=== PATIENT | male | born 1955 | race Caucasian/White ===

== ENCOUNTER 2025-05-17 00:47 | Emergency (ER) | payer MEDICARE, BC, SELFPAY ==
--- NOTE | 2025-05-17 00:49 | ED.GENADULT ---
HPI - General Adult General Time Seen by Provider: 00:49 Date Seen: 05/17/25 Chief complaint: Abdominal Pain Stated complaint: chest pain Time Seen by Provider: 05/17/25 00:49 Source: patient, RN notes reviewed and old records reviewed Mode of arrival: ambulatory Limitations: no limitations History of Present Illness HPI narrative: 70-year-old male who presents to the emergency department today with abdominal pain. Patient had a colonoscopy today, states tonight after eating dinner he had upper abdominal pain and cramping, nausea with no vomiting. Does have some bloating. Says he has not passed gas since his procedure. No fevers or chills, hard to take a deep breath in. Denies chest pain, neck pain, difficulty swallowing. Related Data Allergies Allergy/AdvReac Type Severity Reaction Status Date / Time No Known Drug Allergies Allergy Verified 05/17/25 00:58 PFSH PFS Social History Smoking Status: Never smoker Do you use any of these nicotine containing products: None Second hand tobacco smoke exposure: No How often do you have a drink containing alcohol: monthly or less How often do you have six or more drinks on one occasion: Never AUDIT-C Alcohol total score: 1 Non-prescribed substance use: denies use service: No Exam Narrative: Exam Narrative: General: Well-developed and well-nourished, no acute distress Head: Atraumatic and normocephalic Eyes: Pupils are equal reactive, extraocular motions intact, conjunctiva clear ENT: External nose and ears are normal, posterior pharynx without erythema or exudate Neck: No midline cervical tenderness, full spontaneous range of motion the neck, trachea midline, no adenopathy Heart: Regular rate and rhythm no murmurs or thrills Lungs: Clear to auscultation bilaterally without wheezes or crackles Abdomen: Abdominal distension with diffuse upper abdominal tenderness Musculoskeletal: No tenderness, deformity, or edema Neurologic: Awake, alert, and oriented x3, no gross focal neurologic deficits, cranial nerves intact as tested Psych: Mood and affect are appropriate Skin: No rashes Const: Vital Signs, click to edit/add: Vital Signs - 24 hr 05/17/25 00:53 05/17/25 01:30 05/17/25 01:45 Temperature 98 F Pulse Rate Pulse Rate [Pulse Oximeter] 58 L 58 L 60 Respiratory Rate 16 22 20 Blood Pressure Blood Pressure [Ri ght Upper Arm] 146/88 H 152/102 H 136/86 Pulse Oximetry 98 95 94 Oxygen Delivery Me thod Room Air Room Air Room Air 05/17/25 02:00 Temperature Pulse Rate 82 Pulse Rate [Pulse Oximeter] Respiratory Rate 18 Blood Pressure 142/85 H Blood Pressure [Ri ght Upper Arm] Pulse Oximetry 96 Oxygen Delivery Me thod Room Air Course Course ED Course: Reviewed most recent procedure visit from yesterday when patient had a colonoscopy with polypectomy- polyp removed from the rectum. Care complicated by history of hyperlipidemia, also history of urinary retention and obesity Patient presents today with upper abdominal pain, bloating, nausea after eating. Colonoscopy yesterday, has not passed gas since his procedure. On exam, vital is stable, appears comfortable, abdominal bloating with diffuse upper abdominal tenderness. Consider pancreatitis, colitis, ileus. Also consider acute cholecystitis, perforation. Labs and CT scan are ordered. Patient declines pain medication. Patient did start vomiting after initial evaluation, Zofran ordered. Reevaluation(s) Time of Reevaluation #1: 01:49 Reevaluation #1: Labs independently interpreted by me with normal CBC, normal basic panel other than elevated glucose, elevated bilirubin, AST, ALT. CT scan is pending, concern for biliary obstruction. EKG independently interpreted by me performed at 11:55 p.m. demonstrates normal sinus rhythm rate 60, SC 180, QTC 452, no acute ischemic changes. No prior for comparison. Time of Reevaluation #2: 02:08 Reevaluation #2: CT abdomen and pelvis and panel interpreted by me without evidence of free air although somewhat limited by motion artifact, no gallstones, no gallbladder wall thickening. Time of Reevaluation #3: 02:34 Reevaluation #3: IMPRESSION: 1. No acute abdominal or pelvic abnormality. 2. Incidental findings as above. Patient rechecked, symptoms are resolved. We discussed findings and CT scan which did not demonstrate any acute abnormality. Also discussed elevated total bilirubin, AST, ALT and that this may represent transient biliary obstruction or biliary colic. We discussed disposition, either observation in the emergency department until the morning and recheck LFTs and possible MRCP at that point if LFTs are rising versus discharge home with close follow-up. Patient feels better and would like to go home. Anticipate discharge. Vital Signs Vital signs: Initial Vital Signs Temperature 98 F 05/17/25 00:53 Temperature Source Temporal Artery Scan 05/17/25 00:53 Pulse Rate 58 L 05/17/25 00:53 Respiratory Rate 16 05/17/25 00:53 Blood Pressure 146/88 H 05/17/25 00:53 Blood Pressure Mean 107 H 05/17/25 00:53 Blood Pressure Position Semi-Fowlers 05/17/25 00:53 Pulse Oximetry 98 05/17/25 00:53 Oxygen Delivery Method Room Air 05/17/25 00:53 Vital Signs Temperature 98 F 05/17/25 00:53 Pulse Rate 58 L 05/17/25 00:53 Respiratory Rate 16 05/17/25 00:53 Blood Pressure 146/88 H 05/17/25 00:53 Pulse Oximetry 98 05/17/25 00:53 Oxygen Delivery Method Room Air 05/17/25 00:53 Temperature 98 F 05/17/25 00:53 Pulse Rate 82 05/17/25 02:00 Respiratory Rate 18 05/17/25 02:00 Blood Pressure 142/85 H 05/17/25 02:00 Pulse Oximetry 96 05/17/25 02:00 Oxygen Delivery Method Room Air 05/17/25 02:00 Medications Administered Medications: Discontinued Medications Generic Name Dose Route Start Last Admin Trade Name Freq PRN Reason Stop Dose Admin Ondansetron HCl 4 mg 05/17/25 01:10 05/17/25 01:25 Ondansetron 2 Mg/Ml Inj IVP 05/17/25 01:11 4 mg ONCE ONE Administration Medical Decision Making Lab Data Labs: Lab Results 05/17/25 05/17/25 Range/Units 01:15 02:33 WBC 9.45 (4.50-11.00) K/uL RBC 4.18 L (4.30-5.90) m/uL Hgb 13.8 (13.5-17.5) gm/dL Hct 40.9 (37.0-53.0) % MCV 98 (80-100) fL MCH 33 (26-34) pg MCHC 34 (32-36) gm/dL RDW Coeff of Jonathon 13.3 (11.5-15.5) % Plt Count 262 (140-440) K/uL Neut % (Auto) 77.6 H (42.0-72.0) % Lymph % (Auto) 12.2 L (20-44) % [place] % (Auto) 8.9 (0.0-11.0) % Eos % (Auto) 0.6 (0.0-7.0) % Baso % (Auto) 0.3 (0.0-3.0) % Neut # (Auto) 7.30 H (1.7-7.0) K/uL Lymph # (Auto) 1.20 (0.90-2.90) K/uL [place] # (Auto) 0.80 (0.00-0.90) K/UL Eos # (Auto) 0.06 (0.00-0.50) K/uL Baso # (Auto) 0.03 (0.00-0.30) K/uL Abs Immat Gran (auto) 0.04 (0.00-0.30) K/uL Imm/Tot Granulo (auto) 0.4 % Sodium 139 (135-149) mmol/L Potassium 3.8 (3.6-5.1) mmol/L Chloride 105 (96-114) mmol/L Carbon Dioxide 25 (20-32) mmol/L Anion Gap 9 (7-15) mEq/L BUN 14 (7-30) mg/dL Creatinine 0.8 (0.5-1.5) mg/dL Estimated GFR 95 ml/min Glucose 173 H (60-115) mg/dL Lactate 1.5 (0.5-1.9) mmol/L Calcium 9.5 (8.4-10.6) mg/dL Magnesium 1.7 (1.5-2.6) mg/dL Total Bilirubin 1.8 H (0.1-1.5) mg/dL Direct Bilirubin 0.8 H (0.0-0.5) mg/dL AST 143 H (12-35) U/L ALT 89 H (4-50) U/L Alkaline Phosphatase 145 (40-150) U/L Troponin I < 0.01 (0.01-0.04) ng/mL Total Protein 7.8 (6.0-8.3) g/dL Albumin 4.3 (3.3-5.0) g/dL Lipase 84 (23-300) U/L Lab Acknowledgement Test Added Discharge Plan Discharge Clinical Impression: Acute upper abdominal pain, LFT elevation, Transaminitis, Hyperbilirubinemia Patient Disposition: Home, Self-Care Condition: Stable Instructions: Acute Abdominal Pain (DC) Additional Instructions: Your liver tests including bilirubin are slightly elevated. This can indicate an obstruction of the tube that leads from the gallbladder into the intestine. There is no evidence of gallstones or gallbladder infection on your CT scan. However, you should follow-up closely in clinic for repeat of liver tests and possible further evaluation of the gallbladder and liver, including ultrasound or MRI. Liquid diet for 24 hours. If your symptoms return, or if you developed fever or other concerns, return to the emergency department. Activity Level: No Restrictions Discharge Diet: Full Liquid Stand Alone Forms: [employer] Info Instructions
[2025-05-17 00:53] VITALS: BP 146/88; PULSE 58; RESP 16; TEMP 36.6; O2SAT 98
--- NOTE | 2025-05-17 01:04 | CRLHL7_ITS ---
For Patients: As a result of the Century Cures Act, medical imaging exams and procedure reports are released immediately into your electronic medical record. You may view this report before your referring provider. If you have questions, please contact your health care provider. INDICATION: Upper abdominal pain. TECHNIQUE: CT abdomen and pelvis acquired with 98 cc Isovue 370 IV contrast. COMPARISON: None. FINDINGS: Lower chest: Unremarkable. Liver: Unremarkable. Normal in size and attenuation. No suspicious masses. Gallbladder and bile ducts: Unremarkable. No stones or inflammation. No biliary ductal dilatation. Spleen: Unremarkable. Normal in size. No masses. Adrenal glands: Unremarkable. No nodules. Pancreas: Unremarkable. No mass or inflammation. Kidneys: Left renal cysts. Subcentimeter hypodense foci are too small to accurately characterize. No hydronephrosis. GI tract: Duodenal diverticulum. Colonic diverticulosis without evidence of diverticulitis. No evidence of obstruction. Normal appendix. Lymph nodes: No lymphadenopathy. Vasculature: Scattered atherosclerotic calcifications. Abdominal aorta is normal in caliber. Omentum/Peritoneum/Abdominal Wall: Small fat containing umbilical and right inguinal hernias. No free air or significant free fluid. Pelvis: Urinary bladder diverticulum. Bones: Degenerative changes. Chronic bilateral L5 pars defect with grade 1 anterolisthesis L5 on S1. IMPRESSION: 1. No acute abdominal or pelvic abnormality. 2. Incidental findings as above. Please note that all CT scans at this facility use dose modulation, iterative reconstruction, and/or weight-based dosing when appropriate to reduce radiation dose to as low as reasonably achievable. Dictated by Alan Guy MD @ 05/17/2025 2:24:06 AM (Electronically Signed)
[2025-05-17] MEDS: ONDANSETRON 2 MG/ML inj 4 MG IVP (01:25)
[2025-05-17 01:29] LABS: Lactate* 1.5 mmol/L (0.5-1.9)
[2025-05-17 01:30] VITALS: BP 152/102; PULSE 58; RESP 22; O2SAT 95
[2025-05-17 01:33] LABS: Hematocrit* 40.9 % (37.0-53.0); Hemoglobin* 13.8 gm/dL (13.5-17.5); Immature Granulocytes Abs Auto 0.04 K/uL (0.00-0.30); Immature Granulocytes Pct Auto 0.4 %; Mean Corpuscular HGB Conc 34 gm/dL (32-36); Mean Corpuscular Hemoglobin 33 pg (26-34); Mean Corpuscular Volume 98 fL (80-100); RDW Coefficient of Variation % 13.3 % (11.5-15.5); Red Blood Count* 4.18 m/uL (4.30-5.90); White Blood Count* 9.45 K/uL (4.50-11.00)
[2025-05-17 01:35] LABS: Lymphocytes Absolute Auto 1.20 K/uL (0.90-2.90); Slide Review Reflex No
[2025-05-17 01:43] LABS: Albumin* 4.3 g/dL (3.3-5.0); Chloride* 105 mmol/L (96-114)
[2025-05-17 01:44] LABS: Potassium* 3.8 mmol/L (3.6-5.1); Sodium* 139 mmol/L (135-149)
[2025-05-17 01:45] VITALS: BP 136/86; PULSE 60; RESP 20; O2SAT 94
[2025-05-17 01:46] LABS: Alanine Aminotransferase* 89 U/L (4-50); Anion Gap 9 mEq/L (7-15); Aspartate Amino Transferase* 143 U/L (12-35); Blood Urea Nitrogen* 14 mg/dL (7-30); Carbon Dioxide* 25 mmol/L (20-32); Creatinine* 0.8 mg/dL (0.5-1.5); Estimated Glomerular Filt Rate 95 ml/min
[2025-05-17 01:47] LABS: Alkaline Phosphatase* 145 U/L (40-150); Bilirubin Direct* 0.8 mg/dL (0.0-0.5); Bilirubin Total* 1.8 mg/dL (0.1-1.5); Calcium* 9.5 mg/dL (8.4-10.6); Glucose* 173 mg/dL (60-115); Total Protein* 7.8 g/dL (6.0-8.3)
[2025-05-17 02:00] VITALS: BP 142/85; PULSE 82; RESP 18; O2SAT 96
--- OUTSIDE RECORDS SUMMARY | 2025-05-17 02:01 | XMS_ITS | Clinical Summary ---
Author Organization [facility] Address [address] [place] [id number] Care Team Providers Care Machine Repair Person Name Role Phone Iam Forbes MD Primary Care P rovider Allergies No known active allergies Medications CPAP As directed 1 Device one time. 4 Active multivitamin therapeutic (THERAGRAN; ONCOVITE) tablet Take 1 Tablet by mouth once daily. Active timoloL maleate (TIMOPTIC) 0.5 % ophthalmic solution two times daily. 4 Active tolterodine 4 mg Extended-Release capsuleIndications :Overactive bladder Take 1 Capsule (4 mg) by mouth once daily. 90 Capsule 1 5 Active atorvastatin 40 mg tabletIndications: Mixed hyperlipidemia Take 1 Tablet (40 mg) by mouth at bedtime. 90 Tablet 5 Active CPAPIndications:Ob structive sleep apnea treated with continuous positive airway pressure (CPAP) RESMED CPAP (E0601) machine for home use at pressure: 5-15cmw, Choice of mask (A7030 or A7034) w/full face cushion (A7031) x1/mo, nasal cushion (A7032) x2/mo, or nasal pillows (A7033) x 2/mo; Length of Need: 99 months; Frequency of use: Daily 1 Each 11 5 Active Active Problems Problem Noted Date Diagnosed Date Class 1 obesity due to exces s calories without serious comorbidity with body mass index (BMI) of 33.0 to 33.9 in adult 05/09/2024 Obstructive sleep apnea ed mo with continuous positive airway pressure (CPAP) 06/05/2022 Glaucoma of both eyes 04/16/2021 Overview (06/08/2024): Managed by ophthalmology Actinic keratoses 11/18/2019 Overview (06/08/2024): treated with liquid nitrogen. May need derm referal in the future Family history of prostate cancer in father 11/2018 History of knee replacement, total, bilateral Overactive bladder 02/01/2019 History of colonic polyps 12/07/2017 Overview (06/08/2024): Hyperplastic in 2008 HLD (hyperlipidemia) 12/12/2013 Urinary retention 12/12/2013 Resolved Problems Problem Noted Date Diagnosed Date Resolved Date Pure hypercholesterolemia 02/27/2004 Encounters Date Type Department Care Team Description 05/16/2025 8:36 AM CDT Anesthesia Event [facility] [address] [place] [address] Ruben Adrian CRNA 05/16/2025 8:24 AM CDT - 05/16/2025 9:14 AM CDT Surgery [facility] [address] [place] [address] Gisell Garcia, COLONOSCOPY WITH POLYPECTOMY 05/16/2025 6:59 AM CDT - 05/16/2025 10:12 AM CDT Hospital Encounter [facility] [address] [place] [address] Gisell Garcia, Discharge Disposition: Home Self Care 05/16/2025 Travel from Last 3 Months Immunizations Immunization Administration Dates Next Due COVID-19 VACCINE COMIRNATY (PFIZER-BIONTECH 30MCG/0.3ML) 12YO+ PFS 06/19/2023 COVID-19 vaccine (Pfizer-Bio NTech 30mcg/0.3mL) PF, MDV 06/19/2023 INFLUENZA, IIV3 PF (AGE >= 6 MO) 06/24/2016 Influenza Virus, Unspecified 05/21/2021, 08/03/2013,06/01/2012,06/10 Influenza, High-dose Quadriv alent Inactivated 06/19/2023,06/10/2022 Influenza, IIV3 (Age >=3 years) 05/25/2012,06/11 Influenza, IIV4 06/26/2020, 8,05/27/2017,05/30,06/27/2014 Influenza, IIV4 (=>6mos) MDV 08/03/2013 Influenza, Inactivated AIIV4 (Age 65+ Years) Preserv Free 06/19/2023,05/21/2021 Influenza, Inactivated IIV3 (Age 65+ Years) Preserv Free 06/13/2024,06/01/2019 Pneumococcal Conj 20-valent (Prevnar 20) 04/21/2022 Pneumococcal Poly,23-Valent (Pneumovax) 04/03/2020 RSV, Bivalent Vaccine Recons tituted (Abrysvo 120MCG/0.5mL) 06/19/2023 RSV, Recombinant ADJ Reconst ituted (Arexvy 120MCG/0.5mL) 06/19/2023 Td (Age >=7 Years) 04/03/2020, 6,10/13/1994,08/31,04/06/1985 Td Adult, Adsorbed, Pf, Lf Unspecified 0 Td, Preservative Free (age >= 7 Years) 5,08/31/1994,04/06/1985 Tdap 11/17/2024,04/09/2010 Zoster (Shingrix-RZV, recombinant) 01/30/2021, Zoster (Zostavax-ZVL, live) 09/24/2015, 2 Social History Tobacco Use Types Packs/Day Years Used Date Smoking Tobacco: Never Smokeless Tobacco: Never Tobacco Cessation:Counseling Given: Not Answered Alcohol Use Standard Drinks/Week Comments Yes 0 (1 standard drink = 0.6 oz pur e alcohol) 3 beers a week PHQ-2 Answer Date Recorded PHQ-2 TOTAL SCORE 0 06/09/2024 Social Connections Answer Date Recorded Do you often feel lonely or isolated from those around you? 0 12/27/2024 Financial Resource Strain Answer Date R ecorded Difficulty of Paying Living Expenses 3 12/27/2024 Difficulty of Paying Living Expenses Not on file 12/27/2024 Food Insecurity Answer Date Recorded Do you worry your food will run out before you are able to buy more? 1 12/27/2024 Transportation Needs Answer Date Record ed Does lack of transportation keep you from medica l appointments? 1 12/27/2024 Does lack of transportation keep you from work, meetings or getting things that you need? 1 12/27/2024 Housing Stability Answer Date Recorded What is your housing situation today? 1 12/27/2024 Utilities Answer Date Recorded Do you have trouble paying f or utilities (for example, heat, electricity, water, phone)? 1 12/27/2024 Sex and Gender Information Value Date Recorded Sex Assigned at Not on file Legal Sex Male 9:37 AM CDT Gender Identity Not on file Sexual Orientation Not on file Obstetrics History Last Filed Vital Signs Vital Sign Reading Time Taken Comments Blood Pressure 117/71 05/16/2025 9:45 AM CDT Pulse 59 05/16/2025 10:00 AM CDT Temperature 36.7 C (98 F) 05/16/2025 7:19 AM CDT Respiratory Rate 16 05/16/2025 9:15 AM CDT Oxygen Saturation 96% 05/16/2025 10: 00 AM CDT Inhaled Oxygen Concentration - - Weight 100.6 kg (221 lb 12.8 oz) 05/16/2025 7:19 AM CDT Height 172.7 cm (5' 8) 05/16/2025 7:19 AM CDT Body Mass Index 33.72 05/16/2025 7:19 AM CDT Plan of Treatment Upcoming Encounters Date Type Department Care Team (Late st Contact Info) Description 05/31/2025 10:00 AM CDT Office Visit [facility] [address] [place] [address] Iam Forbes MD [address] [place] [address] Health Maintenance Due Date Last Done Comments Hepatitis C screening for age 18-79 1972 COVID-19 vaccine series (2023- season) 2025 06/13/2024, 06/19/2023, 06/19/2023, Additional history exists Influenza Vaccine (#1) 2025 , 06/19/2023, 05/21/2021, Additional history exists Medicare Wellness for age 65+ 05/10/2025 05/09/2024 (Verified in Care Everywhere or Patient Record) Depression screening for age 12+ 06/09/2025 06/09/2024 BMI (ht and wt on same day) for age 18+ 02/02/2026 02/02/2025, 06/09/2024 Lipids for age 45-75 05/09/2029 05/09/2024 (Verified in Care Everywhere or Patient Record) Tetanus booster 11/17/2034 11/17/2024, 08/0 11/2019, 04/03/2020, Additional history exists Colonoscopy through age 75 05/16/203505/16, 04/30/2009 (Verified in Care Everywhere or Patient Record) Zoster (shingles) series for age 50+ Completed 01/30/2021, 09/04/2020, 09/24/2015, Additional history exists Pneumococcal series for age 50+ Completed 04/21/2022, 04/03/2020 RSV vaccine for adults or Completed 06/19/2023, 06/19/2023 Hepatitis B series for 19+ Aged Out N o longer eligible based on patient's age to complete this topic Procedures Procedure Name Priority Date/Time Associated Diagnosis Comments COLONOSCOPY 05/16/2025 8:27 AM CDT from Last 3 Months Results * COLONOSCOPY (05/16/2025 8:27 AM CDT) 05/16/2025 8:27 AM CDT Narrative Transcriptions Gisell Garcia DO - 05/16/2025 9:30 AM CDT Patient Name: Yves Echeverria Procedure Date: 05/16/2025 Gender: Male Date of : 1955 Admit Type: Ambulatory Procedure: Colonoscopy Proceduralist: DO Fabricio Moss MD: Iam Forbes Indications/Pre-Op Diagnosis: High risk colon cancer surveillance:Personal history of colonic polyps Medications: Propofol per Anesthesia, MonitoredAnesthesia Care Procedure Description: The patient had risks, benefits and alternatives explained to andgave informed consent. The patient had a stable cardiopulmonary status and judged an adequate candidate for conscious sedation. The endoscope [id number] was passed through the anus andadvanced to the terminal ileum, with identification of the appendiceal orifice and IC valve. The colonoscopy was somewhat difficult due to aredundant colon. Successful completion of the procedure was aided by applying abdominal pressure. The patient tolerated the procedure well. The quality of the bowel preparation was evaluated using the BBPS ([place] Bowel Preparation Scale) with scores of: Right Colon = 2 (minoramount of residual staining, small fragments of stool and/or opaque liquid,but mucosa seen well), Transverse Colon = 2 (minor amount of residual staining, small fragments of stool and/or opaque liquid, but mucosaseen well) and Left Colon = 2 (minor amount of residual staining, small fragments of stool and/or opaque liquid, but mucosa seen well). The total BBPS score equals 6. The quality of the bowel preparation was good. The terminal ileum, ileocecal valve, appendiceal orifice, and rectum were photographed. Complications: No immediate complications. Estimated Blood Loss & Specimen: Estimated blood loss was minimal. Specimen collected - Yes and sent to Laboratory Findings: The perianal and digital rectal examinations were normal. Pertinent negatives include normal sphincter tone, no palpable rectal lesionsand normal stool Hemoccult. A 3 mm polyp was found in the rectum. The polyp wassemi-pedunculated. The polyp was removed with a hot snare. Resection and retrieval were complete. Verification of patient identification for the specimen was done. Estimated blood loss was minimal. The terminal ileum contained a single 3 mm diverticulum. Many large-mouthed, medium-mouthed and small-mouthed diverticula were found in the sigmoid colon. Non-bleeding internal hemorrhoids were found during retroflexion and during endoscopy. The hemorrhoids were medium-sized and Grade III (internal hemorrhoids that prolapse but require manual reduction). The colon (entire examined portion) was moderately redundant.Advancing the scope required using manual pressure. The exam was otherwise without abnormality on direct and retroflexion views. Impressions/Post-Op Diagnosis: - One 3 mm polyp in the rectum, removed with a hot snare. Resectedand retrieved. - Ileal diverticulum. - Diverticulosis in the sigmoid colon. - Non-bleeding internal hemorrhoids. - Redundant colon. - The examination was otherwise normal on direct and retroflexionviews. Recommendation: - Patient has a contact number available for emergencies. The signsand symptoms of potential delayed complications were discussed with the patient. Return to normal activities tomorrow. Written discharge instructions were provided to the patient. - Discharge patient to home (ambulatory). - Resume previous diet. - Continue present medications. - Await pathology results. - Repeat colonoscopy in 5-10 years for surveillance based onpathology results. Gisell Garcia DO 05/16/2025 9:30:05 AM This report has been signed electronically. Note Initiated On: 05/16/2025 8:27 AM Gisell Garcia DO PROCEDURE ORD Final Res ult from Last 3 Months Insurance [facility] ADVANT[facility] MEDICARE [place] ONLY MEDICARE PART B HB ONLY MEDICARE PART A HB ONLY Advance Directives Documents on File Type Date Recorded Patient Well Surveying Engineer Expl anation Healthcare Directive 02/17/2022 022 * Full Code (Latest Code Status on File) Date Activated Date Inactivated Comments 05/16/2025 7:02 AM 05/16/2025 12:21 PM Question Answer Comments Code Status Discussion: Discussed Care Teams Machine Repair Person Relationship Specialty Start Date End Date Iam Forbes MD [address] [place] [address] PCP - General Family Practice 06/09/24
[2025-05-17 03:24] VITALS: BP 150/101; PULSE 64; RESP 18
== END 2025-05-17 03:25 | disposition home or self-care (01) ==
PROVIDERS: Emergency Provider Family Medicine; PCP Student in an Organized Health Care Education/Training Program
DX: R10.10 Upper abdominal pain, unspecified (principal); R94.5 Abnormal results of liver function studies; E80.6 Other disorders of bilirubin metabolism; R74.01 Elevation of levels of liver transaminase levels
CPT/HCPCS: 36415; 74177; 80048; 80076; 83605; 83690; 83735; 84484; 85025; 96374; 99284; J2405; Q9967

== ENCOUNTER 2025-05-17 08:28 | Inpatient (IN) | payer MEDICARE, BC, SELFPAY ==
[2025-05-17] VITALS (20 sets, daily range): BP systolic 118–151; BP diastolic 74–103; PULSE 63–110; RESP 11–32; TEMP 36.8–37.6; O2SAT 89–96; BMI 33.4; BMI 33.6; BMI 33.7
--- NOTE | 2025-05-17 09:11 | ED_ITS ---
HPI - General Adult General Time Seen by Provider: 09:11 Date Seen: 06/07/25 Chief complaint: Abdominal Pain Stated complaint: Bloating, chest pain, lightheaded Time Seen by Provider: 05/17/25 09:10 Source: patient and RN notes reviewed Mode of arrival: ambulatory Limitations: no limitations History of Present Illness HPI narrative: This 70-year-old male is returning this morning with ongoing right upper quadrant/ epigastric / lower chest pain. He had been evaluated early this morning just after midnight with abdominal pain. He had had a colonoscopy on 05/16, yesterday. After eating dinner last night, he had upper abdominal pain and cramping, nausea with no vomiting. He felt bloated as well. He had noted no fevers chills. He was found to have elevated liver enzymes, elevated bilirubin but negative CT imaging. Patient opted to go home Rather than being monitored here. He is returning as his pain is worse. He did just have 2 episodes of vomiting after arrival here. The vomiting has resolved some of the pain. He is passing flatus, unsure if he has had a bowel movement since is colonoscopy. He feels lightheaded with his symptoms today as well. No prior abdominal surgery. Related Data Home Medications ?Medication ?Instructions ?Recorded ?Confirmed atorvastatin 40 mg tablet 40 mg PO DAILY 05/17/2505/01 lutein 10 mg tablet 10 mg PO DAILY 05/17/2505/01 wjvzuwtz-iuxbsvxq-cjqhl acid 400 1 tab PO DAILY 05/17/25 mcg-vit K 20 mcg-lycop 300 mcg tablet (One-A-Day Men's Multivitamin) omega3 550 vk-zbs-gmi-D3 250 1.5 cap PO DAILY 05/17/25 05/17/25 unit-lutein 2.5 mg-zeaxant 0.5 mg capsule (Eye [place] Advantage) timolol maleate 0.5 % eye drops 1 drp ophthalmic (eye) QAM 05/17/25 05/17/25 tolterodine 4 mg capsule,extended 4 mg PO DAILY 05/17/25 release 24 hr zeaxanthin 10 mg capsule 2 mg PO DAILY 05/17/2505/17 (Eyepromise Zeaxanthin) Previous Rx's ?Medication ?Instructions ?Recorded hydrocodone 5 mg-acetaminophen 325 1 tab PO Q6H PRN amanda in #14 tabs 05/18/25 mg tablet Allergies Allergy/AdvReac Type Severity Reaction Status Date / Time No Known Drug Allergies Allergy Verified 05/17/25 08:48 Review of Systems Status of ROS: Reports: 6 or more systems reviewed and unremarkable except as noted in History and below PFSH PFS Medical History Overactive bladder ?N32.81 - Overactive bladder (ICD-10) NANDA on CPAP ?G47.33 - Obstructive sleep apnea (adult) (pediatric) (ICD-10) Hyperlipidemia ?E78.5 - Hyperlipidemia, unspecified (ICD-10) Obesity ?E66.9 - Obesity, unspecified (ICD-10) Surgical History H/O inguinal hernia repair ?Z98.890 - Other specified postprocedural states (ICD-10) ?Z87.19 - Personal history of other diseases of the digestive system (ICD-10) History of total bilateral knee replacement ?Z96.653 - Presence of artificial knee joint, bilateral (ICD-10) Social History What is your current living situation?: I presently have a place to live Problems where you live: no known problems In the past 12 months, utilities in danger of being shut off: no In past 12 months, lack of transportation kept you from medical appts, meetings, work, or getting things needed for daily living: no In the past 12 mos, have been you worried that your food would run out before you had money to buy more?: never true In the past 12 mos, the food you bought just didn't last and you didn't have money to buy more?: never true Smoking Status: Never smoker Do you use any of these nicotine containing products: None Second hand tobacco smoke exposure: No How often do you have a drink containing alcohol: monthly or less How often do you have six or more drinks on one occasion: Never AUDIT-C Alcohol total score: 1 Non-prescribed substance use: denies use How often does anyone, including family, friends and others, physically hurt you : never How often does anyone, including family, friends and others, insult or talk down to you: never How often does anyone, including family, friends and others, threaten you with harm: never How often does anyone, including family, friends and others, scream or curse at you: never service: No Exam Const: Vital Signs, click to edit/add: Vital Signs - 24 hr 05/17/25 14:44 05/17/25 14:56 05/17/25 15:00 Pulse Rate [Left P ulse Oximeter] 79 Respiratory Rate 22 Blood Pressure [Ri ght Arm] 147/96 H Pulse Oximetry 93 93 93 Oxygen Delivery Me thod Room Air Room Air 05/17/25 15:00 Pulse Rate [Left P ulse Oximeter] 79 Respiratory Rate 20 Blood Pressure [Ri ght Arm] Pulse Oximetry Oxygen Delivery Me thod This 70-year-old male is lying flat on the ER bed in exam room 1. He is alert and interactive but looks like he does not feel well. Do feel that he may have some jaundice but it could be lighting in the room. His speech is normal, able speak in complete sentences. Lungs are clear, no wheezing or crackles, no tachypnea, no accessory muscle use. CV regular rate and rhythm, no murmur. Abdomen seems like it is mildly distended, faint occasional bowel sound, epigastric to right upper quadrant abdominal discomfort but no rebound or guarding noted, no organomegaly noted. Documenting provider has reviewed patient's vital signs: yes Course Course ED Course: This patient will get ultrasound of his gallbladder. We will recheck full complement of labs. Will also look at a portable chest x-ray, EKG and troponin on him to make sure stability underlying cardiac system. Do think his symptoms likely represent GI pathology with biliary issues. He may need MRCP done based on findings and clinical picture. Will give him IV fluids and Zofran. He does not think he needs anything for pain at this time. Will monitor this patient on pulse oximetry and cardiac monitoring for the time being. Reevaluation(s) Time of Reevaluation #1: 13:56 Reevaluation #1: I have updated the patient that his MRCP and ultrasound, labs are consistent with acute cholecystitis. He understands the plan, he will meet with the surgeon I think probably tomorrow. He will be managed by the hospitalist. Consultations Consultation #1: Did speak with general surgeon Dr. Wilkinson, she agrees that we should proceed with MRCP given the elevated bilirubin. Unclear with the exact etiology is at this time for his elevated bilirubin and liver enzymes. 1:48 p.m.: Did update Dr. Wilkinson. She agrees this is looking like cholecystitis, will initiate Zosyn, she would like him NPO and the hospitalist to manage. Time: 11:14 Consultation #2: Did talk to Dr. Darling the hospitalist. She will accept patient. Time: 14:00 Vital Signs Vital signs: Initial Vital Signs Temperature 98.2 F 05/17/25 08:50 Temperature Source Temporal Artery Scan 05/17/25 08:50 Pulse Rate 75 05/17/25 08:50 Respiratory Rate 18 05/17/25 08:50 Blood Pressure 147/93 H 05/17/25 08:50 Blood Pressure Mean 111 H 05/17/25 08:50 Blood Pressure Position Sitting 05/17/25 08:50 Pulse Oximetry 92 05/17/25 08:50 Oxygen Delivery Method Room Air 05/17/25 08:50 Vital Signs Temperature 98.2 F 05/17/25 08:50 Pulse Rate 75 05/17/25 08:50 Respiratory Rate 18 05/17/25 08:50 Blood Pressure 147/93 H 05/17/25 08:50 Pulse Oximetry 92 05/17/25 08:50 Oxygen Delivery Method Room Air 05/17/25 08:50 Temperature 98.1 F 05/18/25 13:50 Pulse Rate 77 05/18/25 13:50 Respiratory Rate 20 05/18/25 13:50 Blood Pressure 119/85 05/18/25 13:50 Pulse Oximetry 92 05/18/25 13:50 Oxygen Delivery Method Room Air 05/18/25 13:50 Oxygen Flow Rate 6 05/18/25 11:20 Medications Administered Medications: Generic Name Dose Route Start Last Admin Trade Name Freq PRN Reason Stop Dose Admin Acetaminophen 650 mg 05/17/25 23:32 05/17/25 23:40 Acetaminophen 325 Mg Tablet PO 650 mg Q6H PRN Administration As needed for fever, headache, or minor pain Piperacillin Sod/Tazobactam 100 mls @ 200 mls/hr 05/17/25 21:00 05/18/25 08:24 Sod 3.375 gm/ Sodium Chloride IVPB 200 mls/hr Q6H LOREN Administration Lactated Ringer's 500 mls @ 125 mls/hr 05/18/25 11:32 05/18/25 11:33 Lactated Ringers 500 Ml IV 05/18/25 15:31 30 mls/hr .Q4H ONE Infusion Lactated Ringer's 1,000 mls @ 125 mls/hr 05/18/25 11:41 05/18/25 12:07 Lactated Ringers 1000 Ml IV 125 mls/hr .Q8H LOREN Administration Ondansetron HCl 4 mg 05/17/25 14:44 05/17/25 14:54 Ondansetron 2 Mg/Ml Inj IVP 4 mg Q4H PRN Administration Nausea Sodium Chloride 5 ml 05/17/25 14:44 05/17/25 16:36 Sodium Chloride 0.9 % (Flush) 10 Ml Syringe IVF 5 ml .FLUSH PRN Administration Sodium Chloride 5 ml 05/17/25 21:00 05/18/25 08:24 Sodium Chloride 0.9 % (Flush) 10 Ml Syringe IVF 5 ml BID LOREN Administration Timolol Maleate 1 drop 05/18/25 09:00 05/18/25 08:24 Timolol Maleate 0.5 % EYE-BOTH 1 drop QAM LOREN Administration Tolterodine Tartrate 4 mg 05/18/25 09:00 05/18/25 08:23 Tolterodine Tartrate 2 Mg Cap.Er.24h PO Not Given DAILY LOREN Discontinued Medications Generic Name Dose Route Start Last Admin Trade Name Freq PRN Reason Stop Dose Admin Sodium Chloride 1,000 mls @ 500 mls/hr 05/17/25 09:22 05/17/25 17:09 0.9 % Sodium Chloride 1000 Ml IV 05/17/25 11:21 Infused .Q2H LOREN Infusion Piperacillin Sod/Tazobactam 100 mls @ 200 mls/hr 05/17/25 13:49 05/17/25 17:09 Sod 3.375 gm/ Sodium Chloride IVPB 05/17/25 13:50 Infused ONCE ONE Infusion Sodium Chloride 1,000 mls @ 125 mls/hr 05/17/25 14:44 05/18/25 03:03 0.9 % Sodium Chloride 1000 Ml IV 125 mls/hr .Q8H LOREN Administration Sodium Chloride 1,000 mls @ 1,000 mls/hr 05/17/25 16:56 05/18/25 04:32 0.9 % Sodium Chloride 1000 Ml IV 05/17/25 17:55 Infused .Q1H LOREN Infusion Ibuprofen 400 mg 05/18/25 01:28 05/18/25 01:50 Ibuprofen 400 Mg Tablet PO 05/18/25 01:29 400 mg ONCE ONE Administration Morphine Sulfate 4 mg 05/17/25 13:01 05/17/25 13:07 Morphine 4 Mg/Ml Inj IVP 05/17/25 13:02 4 mg ONCE ONE Administration Morphine Sulfate 2 mg 05/17/25 14:44 05/17/25 14:54 Morphine 2 Mg/Ml Inj IVP 2 mg Q2H PRN Administration Ondansetron HCl 4 mg 05/17/25 09:22 05/17/25 09:40 Ondansetron 2 Mg/Ml Inj IVP 05/17/25 09:23 4 mg ONCE ONE Administration Ondansetron HCl 4 mg 05/17/25 11:24 05/17/25 11:28 Ondansetron 2 Mg/Ml Inj IVP 05/17/25 11:25 4 mg ONCE ONE Administration Medical Decision Making Lab Data Lab results reviewed: Yes I reviewed the patient's lab results Labs: Lab Results 05/17/25 05/17/25 05/17/25 Range/Units 08:55 09:30 15:14 WBC 11.13 H (4.50-11.00) K/uL RBC 4.30 (4.30-5.90) m/uL Hgb 14.1 (13.5-17.5) gm/dL Hct 41.9 (37.0-53.0) % MCV 97 (80-100) fL MCH 33 (26-34) pg MCHC 34 (32-36) gm/dL RDW Coeff of Jonathon 13.3 (11.5-15.5) % Plt Count 244 (140-440) K/uL Neut % (Auto) 85.8 H (42.0-72.0) % Lymph % (Auto) 4.5 L (20-44) % [place] % (Auto) 9.5 (0.0-11.0) % Eos % (Auto) 0.0 (0.0-7.0) % Baso % (Auto) 0.1 (0.0-3.0) % Neut # (Auto) 9.50 H (1.7-7.0) K/uL Lymph # (Auto) 0.50 L (0.90-2.90) K/uL [place] # (Auto) 1.10 H (0.00-0.90) K/UL Eos # (Auto) 0.00 (0.00-0.50) K/uL Baso # (Auto) 0.00 (0.00-0.30) K/uL Abs Immat Gran (auto) 0.00 (0.00-0.30) K/uL Imm/Tot Granulo (auto) 0.1 % Sodium 137 (135-149) mmol/L Potassium 3.9 (3.6-5.1) mmol/L Chloride 104 (96-114) mmol/L Carbon Dioxide 23 (20-32) mmol/L Anion Gap 10 (7-15) mEq/L BUN 13 (7-30) mg/dL Creatinine 0.8 (0.5-1.5) mg/dL Estimated Creat Clear 65.55 Estimated GFR 95 ml/min Glucose 210 H (60-115) mg/dL Lactate 2.2 H (0.5-1.9) mmol/L Calcium 9.4 (8.4-10.6) mg/dL Magnesium 1.6 (1.5-2.6) mg/dL Total Bilirubin 3.9 H (0.1-1.5) mg/dL Direct Bilirubin 2.0 H (0.0-0.5) mg/dL AST 660 H (12-35) U/L ALT 517 H (4-50) U/L Alkaline Phosphatase 165 H (40-150) U/L Troponin I 0.02 (0.01-0.04) ng/mL C-Reactive Protein 0.6 (0.5-1.0) mg/dL NT-Pro-B Natriuret Pep 120 (See Note) pg/mL Total Protein 8.1 (6.0-8.3) g/dL Albumin 4.5 (3.3-5.0) g/dL Lipase 68 (23-300) U/L SARS-CoV-2 (PCR) Negative SARS-CoV-2 (Negative) Influenza Type A (PCR) Negative PCR FLU A (Negative) Influenza Type B (PCR) Negative PCR FLU B (Negative) RSV (PCR) Negative PCR RSV (Negative) Lab Acknowledgement Cancelled Imaging Data US - abdomen: Attestation: I have reviewed the pertinent imaging results. Radiologist's impression: Patient: SONU PÉREZ Facility:?[facility] Patient ID:?[id number] Site Patient ID:?[id number]. Site :?[id number] Study:?US-Abdomen LMT RUQ-05/17/2025 10:33:36 AM Ordering Physician:Eyal Jiménez Final Report: INDICATION: Abdominal pain with nausea/vomiting and abnormal liver function tests. (Sic) COMPARISON: None available. TECHNIQUE: Right upper quadrant grayscale and limited color Doppler ultrasound. FINDINGS: Interpretation is limited by patient body habitus. Liver: Diffuse homogeneous increased hepatic parenchymal echotexture consistent with steatosis. Differential diagnostic considerations include chronic hepatitis and cirrhosis. No nayeli surface nodularity to suggest cirrhosis. No suspicious focal lesion. No intrahepatic biliary ductal dilatation. Normal hepatopedal portal venous blood flow. Normal peak systolic velocity of the portal vein on spectral Doppler at 26 cm/second. Gallbladder: Nondistended. Probable gallbladder sludge within the dependent gallbladder neck. No evidence of cholelithiasis. Normal wall thickness. Negative sonographic Telles sign. CBD: Not seen. Pancreas: Normal where visualized. The pancreas is partially obscured and therefore incompletely evaluated. Right Kidney: Normal echotexture. No hydronephrosis. No convincing sonographic evidence of nephrolithiasis. Midline Vasculature: Unremarkable where visualized. Peritoneal Cavity: No significant ascites. Additional Findings: None. IMPRESSION: 1. Diffusely echogenic hepatic parenchyma echotexture. This finding is most commonly due to hepatic steatosis. Differential diagnostic considerations as above. 2. Probable gallbladder sludge. No evidence of cholelithiasis. No other sonographic findings to indicate acute cholecystitis. 3. Otherwise limited study due to patient body habitus. The extrahepatic bile duct is not seen. Dictated by Mingo Tian MD @ 05/17/2025 11:12:51 AM (Electronic Signature) Chest x-ray: Attestation: I have reviewed the pertinent imaging results. Radiologist's impression: Patient: SONU PÉREZ Facility:?[facility] Patient ID:?[id number] Site Patient ID:?[id number]. Site :?1955 Study:?XRay-Chest Portable one view-05/17/2025 9:40:43 AM Ordering Physician:Eyal Jiménez Final Report: INDICATION: Cough. COMPARISON: Comparison is made to a same day abdominopelvic CT which includes a portion of the lower chest. TECHNIQUE: Portable sitting AP view of the chest. FINDINGS: Slightly rotated rightward. Medical Devices: None. Lung Volumes: Adequate inspiration. No significant atelectasis. Lungs: Upper lobe pulmonary venous diversion suggest pulmonary venous congestion. No evidence of pulmonary edema. Pleura and Pleural spaces: No significant pleural effusion. No pneumothorax. Mediastinum: Normal cardiomediastinal silhouette. Bony Thorax and Soft Tissues: No significant incidental findings. IMPRESSION: Upper lobe pulmonary venous diversion suggest pulmonary venous congestion. No evidence of pulmonary edema. Recommend clinical correlation as to the possibility of volume overload/congestive heart failure. No other findings to explain the clinical history of a cough. Dictated by Mingo Tian MD @ 05/17/2025 10:06:44 AM (Electronic Signature) MRI - abdomen: Attestation: I have reviewed the pertinent imaging results. Radiologist's impression: Patient: SONU PÉREZ Facility:?[facility] Patient ID:?[id number] Site Patient ID:?[id number]. Site :?1955 Study:?MRI-Abdomen W/O MRCP-05/17/2025 12:38:41 PM Ordering Physician:?Bahman Jiménez Final Report: INDICATION: Right upper quadrant pain TECHNIQUE: 1.5 T MRI of the abdomen was performed with T2 weighted imaging; in and out of phase imaging; 3D MRCP imaging was obtained. No intravenous contrast was administered COMPARISON: Same day abdominal ultrasound and CT abdomen pelvis FINDINGS: Lungs: The lung bases are clear. No pleural or pericardial effusion. Edematous and mildly thickened mucosa of the distal esophagus Liver: Hepatic steatosis. Biliary tree and gallbladder: No intra or extrahepatic biliary dilation. Common bile duct measures up to 5 mm and tapers normally toward the ampulla. Fluid- filled gallbladder without stones. Gallbladder wall measures 3 mm. Spleen: Unremarkable Pancreas: Mildly atrophic pancreatic parenchyma. No pancreatic duct dilation. Adrenal glands: Unremarkable. Kidneys and ureters: No definite renal masses or hydronephrosis. Bilateral renal cysts and subcentimeter cystic lesions measuring up to 5.2 cm on the left GI tract: No evidence of obstruction or inflammation. Vasculature: The IVC and aorta are normal in caliber. Retroaortic left renal vein. Lymph nodes: No lymphadenopathy. Abdominal wall: Unremarkable Bones: Degenerative change of the imaged spine. IMPRESSION: 1. Hepatic steatosis 2. Edematous and mildly thickened mucosa of the distal esophagus, findings can be seen in the setting of esophagitis 3. Mildly distended gallbladder with prominent but not overtly thickened gallbladder wall. No intra or extrahepatic biliary dilation. No evidence of choledocholithiasis. Dictated by Anisa Encinas MD @ 05/17/2025 1:44:49 PM (Electronic Signature) ECG Data Attestation: I personally reviewed and interpreted this ECG as follows: (Sinus rhythm, 71 beats per minute. Artifact seen. The nonspecific ST and T-wave abnormality I believe corresponds to artifact on this EKG.) Prior ECG tracings: available for review Discharge Plan Discharge Clinical Impression: Acute cholecystitis Patient Disposition: Admitted As Inpatient Condition: Stable Activity Level: Activity as Tolerated and No strenuous activity Activity Detail: No lifting more than 20 pounds for 2 weeks. Discharge Diet: Regular
--- NOTE | 2025-05-17 09:12 | CRLHL7_ITS ---
For Patients: As a result of the Century Cures Act, medical imaging exams and procedure reports are released immediately into your electronic medical record. You may view this report before your referring provider. If you have questions, please contact your health care provider. INDICATION: Cough. COMPARISON: Comparison is made to a same day abdominopelvic CT which includes a portion of the lower chest. TECHNIQUE: Portable sitting AP view of the chest. FINDINGS: Slightly rotated rightward. Medical Devices: None. Lung Volumes: Adequate inspiration. No significant atelectasis. Lungs: Upper lobe pulmonary venous diversion suggest pulmonary venous congestion. No evidence of pulmonary edema. Pleura and Pleural spaces: No significant pleural effusion. No pneumothorax. Mediastinum: Normal cardiomediastinal silhouette. Bony Thorax and Soft Tissues: No significant incidental findings. IMPRESSION: Upper lobe pulmonary venous diversion suggest pulmonary venous congestion. No evidence of pulmonary edema. Recommend clinical correlation as to the possibility of volume overload/congestive heart failure. No other findings to explain the clinical history of a cough. Dictated by Mingo Tian MD @ 05/17/2025 10:06:44 AM (Electronically Signed)
--- NOTE | 2025-05-17 09:22 | CRLHL7_ITS ---
For Patients: As a result of the Cures Act, medical imaging exams and procedure reports are released immediately into your electronic medical record. You may view this report before your referring provider. If you have questions, please contact your health care provider. INDICATION: Abdominal pain with nausea/vomiting and abnormal liver function tests. (Sic) COMPARISON: None available. TECHNIQUE: Right upper quadrant grayscale and limited color Doppler ultrasound. FINDINGS: Interpretation is limited by patient body habitus. Liver: Diffuse homogeneous increased hepatic parenchymal echotexture consistent with steatosis. Differential diagnostic considerations include chronic hepatitis and cirrhosis. No nayeli surface nodularity to suggest cirrhosis. No suspicious focal lesion. No intrahepatic biliary ductal dilatation. Normal hepatopedal portal venous blood flow. Normal peak systolic velocity of the portal vein on spectral Doppler at 26 cm/second. Gallbladder: Nondistended. Probable gallbladder sludge within the dependent gallbladder neck. No evidence of cholelithiasis. Normal wall thickness. Negative sonographic Telles sign. CBD: Not seen. Pancreas: Normal where visualized. The pancreas is partially obscured and therefore incompletely evaluated. Right Kidney: Normal echotexture. No hydronephrosis. No convincing sonographic evidence of nephrolithiasis. Midline Vasculature: Unremarkable where visualized. Peritoneal Cavity: No significant ascites. Additional Findings: None. IMPRESSION: 1. Diffusely echogenic hepatic parenchyma echotexture. This finding is most commonly due to hepatic steatosis. Differential diagnostic considerations as above. 2. Probable gallbladder sludge. No evidence of cholelithiasis. No other sonographic findings to indicate acute cholecystitis. 3. Otherwise limited study due to patient body habitus. The extrahepatic bile duct is not seen. Dictated by Mingo Tian MD @ 05/17/2025 11:12:51 AM (Electronically Signed)
[2025-05-17 09:38] LABS: Lactate* 2.2 mmol/L (0.5-1.9)
[2025-05-17 09:40] LABS: PCR FLU A Negative PCR FLU A (Negative); PCR FLU B Negative PCR FLU B (Negative); PCR RSV Negative PCR RSV (Negative); SARS PCR* Negative SARS-CoV-2 (Negative)
[2025-05-17] MEDS: ONDANSETRON 2 MG/ML inj 4 MG IVP ×3 (09:40→14:54)
[2025-05-17 09:46] LABS: Hematocrit* 41.9 % (37.0-53.0); Hemoglobin* 14.1 gm/dL (13.5-17.5); Immature Granulocytes Pct Auto 0.1 %; Lymphocytes Absolute Auto 0.50 K/uL (0.90-2.90); Mean Corpuscular HGB Conc 34 gm/dL (32-36); Mean Corpuscular Hemoglobin 33 pg (26-34); Mean Corpuscular Volume 97 fL (80-100); RDW Coefficient of Variation % 13.3 % (11.5-15.5); Red Blood Count* 4.30 m/uL (4.30-5.90); White Blood Count* 11.13 K/uL (4.50-11.00)
[2025-05-17 09:49] LABS: Immature Granulocytes Abs Auto 0.00 K/uL (0.00-0.30); Slide Review Reflex No
[2025-05-17 10:22] LABS: Albumin* 4.5 g/dL (3.3-5.0); Chloride* 104 mmol/L (96-114)
[2025-05-17 10:23] LABS: Potassium* 3.9 mmol/L (3.6-5.1); Sodium* 137 mmol/L (135-149)
[2025-05-17 10:25] LABS: Blood Urea Nitrogen* 13 mg/dL (7-30); Creatinine* 0.8 mg/dL (0.5-1.5); Est. Creatinine Clearance* 65.55; Estimated Glomerular Filt Rate 95 ml/min
[2025-05-17 10:26] LABS: Alanine Aminotransferase* 517 U/L (4-50); Alkaline Phosphatase* 165 U/L (40-150); Anion Gap 10 mEq/L (7-15); Aspartate Amino Transferase* 660 U/L (12-35); Bilirubin Direct* 2.0 mg/dL (0.0-0.5); Bilirubin Total* 3.9 mg/dL (0.1-1.5); Calcium* 9.4 mg/dL (8.4-10.6); Carbon Dioxide* 23 mmol/L (20-32); Glucose* 210 mg/dL (60-115); Total Protein* 8.1 g/dL (6.0-8.3)
[2025-05-17 10:37] LABS: NT Pro B Type NatriureticPept* 120 pg/mL (See Note)
--- NOTE | 2025-05-17 11:07 | CRLHL7_ITS ---
For Patients: As a result of the Century Cures Act, medical imaging exams and procedure reports are released immediately into your electronic medical record. You may view this report before your referring provider. If you have questions, please contact your health care provider. INDICATION: Right upper quadrant pain TECHNIQUE: 1.5 T MRI of the abdomen was performed with T2 weighted imaging; in and out of phase imaging; 3D MRCP imaging was obtained. No intravenous contrast was administered COMPARISON: Same day abdominal ultrasound and CT abdomen pelvis FINDINGS: Lungs: The lung bases are clear. No pleural or pericardial effusion. Edematous and mildly thickened mucosa of the distal esophagus Liver: Hepatic steatosis. Biliary tree and gallbladder: No intra or extrahepatic biliary dilation. Common bile duct measures up to 5 mm and tapers normally toward the ampulla. Fluid-filled gallbladder without stones. Gallbladder wall measures 3 mm. Spleen: Unremarkable Pancreas: Mildly atrophic pancreatic parenchyma. No pancreatic duct dilation. Adrenal glands: Unremarkable. Kidneys and ureters: No definite renal masses or hydronephrosis. Bilateral renal cysts and subcentimeter cystic lesions measuring up to 5.2 cm on the left GI tract: No evidence of obstruction or inflammation. Vasculature: The IVC and aorta are normal in caliber. Retroaortic left renal vein. Lymph nodes: No lymphadenopathy. Abdominal wall: Unremarkable Bones: Degenerative change of the imaged spine. IMPRESSION: 1. Hepatic steatosis 2. Edematous and mildly thickened mucosa of the distal esophagus, findings can be seen in the setting of esophagitis 3. Mildly distended gallbladder with prominent but not overtly thickened gallbladder wall. No intra or extrahepatic biliary dilation. No evidence of choledocholithiasis. Dictated by Anisa Encinas MD @ 05/17/2025 1:44:49 PM (Electronically Signed)
[2025-05-17] MEDS: MORPHINE 4 MG/ML INJ IVP (13:07)
[2025-05-17] MEDS: PIPERACILLIN/TAZOBACTAM 3.375 GM in 0.9 % SODIUM CHLORIDE Mini-bag 100 ML IVPB ×2 (14:21→22:20)
--- NOTE | 2025-05-17 14:40 | P.IMHP_ITS ---
Assessment and Plan Assessment and plan (1) Acute cholecystitis: Problem comment: - imaging today shows concern for acute cholecystitis without evidence of choledocholithiasis on MRCP - transaminitis, hyperbilirubinemia - ED provider discussed with General surgery, Dr. Wilkinson, recommending admission with IV antibiotics, NPO, IVF, pain and nausea management. Plan for OR likely in the next 24-48 hours - continue Zosyn, morphine, Zofran - SCDs for VTE PPX Status: Acute (2) Hyperbilirubinemia: Problem comment: - total bili 3.9, direct bili 2.0 - follow daily Status: Acute (3) Transaminitis: Problem comment: - AST 660, ALT 517, alk-phos 165 - follow daily Status: Acute (4) Hyperlipidemia: Problem comment: -hold statin for now given transaminitis Status: Acute (5) NANDA on CPAP: Problem comment: -CPAP -perioperative pulmonary hygiene Status: Acute (6) Pulmonary vascular congestion: Problem comment: -noted on CXR -asymptomatic. Walks 2-3 miles 3-4 times weekly and rides an Ebike the other days -BNP 120 -ECHO ordered pre operatively (no previous to compare) Status: Acute Total Time Spent Total Time Spent: Today I spent 75 minutes seeing the patient, reviewing Expanse and EPIC notes/diagnostics, discussing the care plan with our care time that includes social work, PT/OT, pharmacy, RT, care home and documenting my impressions and plan in the medical record. Hospitalist- H&P: HPI History of Present Illness Date Seen: 05/17/25 Chief complaint: Bloating, chest pain Narrative: Yves Echeverria is a 70 year old male past medical history significant for obesity, hyperlipidemia, overactive bladder is admitted to the medical floor from the ED for further management acute cholecystitis. Patient is seen with at bedside. Onset abdominal pain and cramping, nausea without vomiting approximately 8:00 p.m. last night. Eventually vomiting overnight. No change in stools other than related to colonoscopy prep earlier this week. No documented fevers though felt feverish overnight. Denies headache. Has occasional lightheadedness. Denies chest pain or shortness of breath. Denies sore throat or difficulty swallowing. Imaging in ED concerning for acute cholecystitis without evidence of choledocholithiasis on MRCP. Significantly elevated LFTs, bilirubin. ED provider discussed with General surgery, admit with plan for surgical intervention 1-[address] Forbes. Recently moved from [place]. Never a smoker. 2-3 drinks weekly. No previous anesthesia complications. Last was with colonoscopy this week with intubation- likely cause for findings of edema and thickened mucosa of the distal esophagus. No personal/family history bleeding disorders. Echocardiogram ordered for findings of pulmonary vascular congestion on CXR. BNP unremarkable. Asymptomatic. Walks 2-3 miles 3-4 times weekly and rides an Ebike the other days. Review of Systems Narrative: REVIEW OF SYSTEMS: Complete review of systems performed and negative unless otherwise stated in HPI or below. Medical Decision Making Medical Decision Making Code Status: full code [facility] Medical History Overactive bladder ?N32.81 - Overactive bladder (ICD-10) NANDA on CPAP ?G47.33 - Obstructive sleep apnea (adult) (pediatric) (ICD-10) Hyperlipidemia ?E78.5 - Hyperlipidemia, unspecified (ICD-10) Obesity ?E66.9 - Obesity, unspecified (ICD-10) Surgical History H/O inguinal hernia repair ?Z98.890 - Other specified postprocedural states (ICD-10) ?Z87.19 - Personal history of other diseases of the digestive system (ICD-10) History of total bilateral knee replacement ?Z96.653 - Presence of artificial knee joint, bilateral (ICD-10) Social History What is your current living situation?: I presently have a place to live Problems where you live: no known problems In the past 12 months, utilities in danger of being shut off: no In past 12 months, lack of transportation kept you from medical appts, meetings, work, or getting things needed for daily living: no In the past 12 mos, have been you worried that your food would run out before yo u had money to buy more?: never true In the past 12 mos, the food you bought just didn't last and you didn't have money to buy more?: never true Smoking Status: Never smoker Do you use any of these nicotine containing products: None Second hand tobacco smoke exposure: No How often do you have a drink containing alcohol: monthly or less How often do you have six or more drinks on one occasion: Never AUDIT-C Alcohol total score: 1 Non-prescribed substance use: denies use How often does anyone, including family, friends and others, physically hurt you : never How often does anyone, including family, friends and others, insult or talk down to you: never How often does anyone, including family, friends and others, threaten you with harm: never How often does anyone, including family, friends and others, scream or curse at you: never service: No Meds Home Medications and Allergies Home Medications ?Medication ?Instructions ?Recorded ?Confirmed ?Type atorvastatin 40 mg tablet 40 mg PO DAILY 05/17/2505/01 History lutein 10 mg tablet 10 mg PO DAILY 05/17/2505/01 History ekzlhjqj-glerolkc-hajfb acid 400 1 tab PO DAILY 05/17/25 History mcg-vit K 20 mcg-lycop 300 mcg tablet (One-A-Day Men's Multivitamin) omega3 550 qo-irm-cvh-D3 250 1.5 cap PO DAILY 05/17/25 05/17/25 History unit-lutein 2.5 mg-zeaxant 0.5 mg capsule (Eye [place] Advantage) timolol maleate 0.5 % eye drops 1 drp ophthalmic (eye) QAM 05/17/25 05/17/25 History tolterodine 4 mg capsule,extended 4 mg PO DAILY 05/17/25 History release 24 hr zeaxanthin 10 mg capsule 2 mg PO DAILY 05/17/2505/17 History (Eyepromise Zeaxanthin) Allergies Allergy/AdvReac Type Severity Reaction Status Date / Time No Known Drug Allergies Allergy Verified 05/17/25 08:48 Exam Narrative: Exam Narrative: PHYSICAL EXAM General: Pleasant, conversant, NAD HEENT: Normocephalic, atraumatic, sclera white, EOMI, oral mucosa moist Cardiovascular: RRR, S1S2. No pitting edema Pulmonary: CTA bilaterally without rhonchi, rales, expiratory wheezes. No dyspnea on room air Abdominal: Firm, distended, generalized tenderness Neurological: Alert, answering questions appropriately, cranial nerves intact, no focal findings Extremities: No gross joint deformity or swelling. AROMI. Neurovascularly intact Skin: Warm, dry. Const: Vital Signs, click to edit/add: Vital Signs - 24 hr 05/17/25 08:50 05/17/25 10:37 05/17/25 10:52 Temperature 98.2 F Pulse Rate 66 63 Pulse Rate [Pulse Oximeter] 75 Respiratory Rate 18 16 24 Blood Pressure Blood Pressure [Ri ght Upper Arm] 147/93 H Pulse Oximetry 92 95 93 [facility] 05/17/25 10:53 05/17/25 10:54 05/17/25 11:00 Temperature Pulse Rate 63 64 64 Pulse Rate [Pulse Oximeter] Respiratory Rate 13 13 11 L Blood Pressure 151/89 H Blood Pressure [Ri ght Upper Arm] Pulse Oximetry 93 96 95 [facility] 05/17/25 11:15 05/17/25 12:24 05/17/25 12:30 Temperature Pulse Rate 64 66 70 Pulse Rate [Pulse Oximeter] Respiratory Rate 32 H Blood Pressure Blood Pressure [Ri ght Upper Arm] Pulse Oximetry 93 93 94 Oxygen Delivery [facility] 05/17/25 12:45 05/17/25 13:00 05/17/25 13:10 Temperature Pulse Rate 67 64 69 Pulse Rate [Pulse Oximeter] Respiratory Rate 16 Blood Pressure 150/103 H Blood Pressure [Ri ght Upper Arm] Pulse Oximetry 89 93 93 [facility] 05/17/25 13:15 Temperature Pulse Rate 68 Pulse Rate [Pulse Oximeter] Respiratory Rate Blood Pressure Blood Pressure [Ri ght Upper Arm] Pulse Oximetry 89 Oxygen Delivery [facility] Hospitalist - H&P: Result Labs Labs: Short CBC 05/17/25 Range/Units 09:30 WBC 11.13 H (4.50-11.00) K/uL Hgb 14.1 (13.5-17.5) gm/dL Hct 41.9 (37.0-53.0) % Plt Count 244 (140-440) K/uL BMP 05/17/25 09:30 Sodium 137 Potassium 3.9 Chloride 104 Carbon Dioxide 23 BUN 13 Creatinine 0.8 Glucose 210 H Calcium 9.4 Cardiac Enzymes 05/17/25 Range/Units 09:30 Troponin I 0.02 (0.01-0.04) ng/mL Liver Function 05/17/25 Range/Units 09:30 Total Bilirubin 3.9 H (0.1-1.5) mg/dL Direct Bilirubin 2.0 H (0.0-0.5) mg/dL AST 660 H (12-35) U/L ALT 517 H (4-50) U/L Alkaline Phosphatase 165 H (40-150) U/L Albumin 4.5 (3.3-5.0) g/dL ECG Attestation: I personally reviewed and interpreted this ECG as follows: Interpretation: NSR, PACs, ventricular rate 71, QTC 462 Imaging MRI - abdomen: Attestation: I have reviewed the pertinent imaging results. Radiologist's impression: Lungs: The lung bases are clear. No pleural or pericardial effusion. Edematous and mildly thickened mucosa of the distal esophagus Liver: Hepatic steatosis. Biliary tree and gallbladder: No intra or extrahepatic biliary dilation. Common bile duct measures up to 5 mm and tapers normally toward the ampulla. Fluid-filled gallbladder without stones. Gallbladder wall measures 3 mm. Spleen: Unremarkable Pancreas: Mildly atrophic pancreatic parenchyma. No pancreatic duct dilation. Adrenal glands: Unremarkable. Kidneys and ureters: No definite renal masses or hydronephrosis. Bilateral renal cysts and subcentimeter cystic lesions measuring up to 5.2 cm on the left GI tract: No evidence of obstruction or inflammation. Vasculature: The IVC and aorta are normal in caliber. Retroaortic left renal vein. Lymph nodes: No lymphadenopathy. Abdominal wall: Unremarkable Bones: Degenerative change of the imaged spine. IMPRESSION: 1. Hepatic steatosis 2. Edematous and mildly thickened mucosa of the distal esophagus, findings can be seen in the setting of esophagitis 3. Mildly distended gallbladder with prominent but not overtly thickened gallbladder wall. No intra or extrahepatic biliary dilation. No evidence of choledocholithiasis. Chest x-ray: Attestation: I have reviewed the pertinent imaging results. Radiologist's impression: Comparison is made to a same day abdominopelvic CT which includes a portion of the lower chest. TECHNIQUE: Portable sitting AP view of the chest. FINDINGS: Slightly rotated rightward. Medical Devices: None. Lung Volumes: Adequate inspiration. No significant atelectasis. Lungs: Upper lobe pulmonary venous diversion suggest pulmonary venous congestion. No evidence of pulmonary edema. Pleura and Pleural spaces: No significant pleural effusion. No pneumothorax. Mediastinum: Normal cardiomediastinal silhouette. Bony Thorax and Soft Tissues: No significant incidental findings. IMPRESSION: Upper lobe pulmonary venous diversion suggest pulmonary venous congestion. No evidence of pulmonary edema. Recommend clinical correlation as to the possibility of volume overload/congestive heart failure. No other findings to explain the clinical history of a cough. US - abdomen: Attestation: I have reviewed the pertinent imaging results. Radiologist's impression: Interpretation is limited by patient body habitus. Liver: Diffuse homogeneous increased hepatic parenchymal echotexture consistent with steatosis. Differential diagnostic considerations include chronic hepatitis and cirrhosis. No naeyli surface nodularity to suggest cirrhosis. No suspicious focal lesion. No intrahepatic biliary ductal dilatation. Normal hepatopedal portal venous blood flow. Normal peak systolic velocity of the portal vein on spectral Doppler at 26 cm/second. Gallbladder: Nondistended. Probable gallbladder sludge within the dependent gallbladder neck. No evidence of cholelithiasis. Normal wall thickness. Negative sonographic Telles sign. CBD: Not seen. Pancreas: Normal where visualized. The pancreas is partially obscured and therefore incompletely evaluated. Right Kidney: Normal echotexture. No hydronephrosis. No convincing sonographic evidence of nephrolithiasis. Midline Vasculature: Unremarkable where visualized. Peritoneal Cavity: No significant ascites. Additional Findings: None. IMPRESSION: 1. Diffusely echogenic hepatic parenchyma echotexture. This finding is most commonly due to hepatic steatosis. Differential diagnostic considerations as above. 2. Probable gallbladder sludge. No evidence of cholelithiasis. No other sonographic findings to indicate acute cholecystitis. 3. Otherwise limited study due to patient body habitus. The extrahepatic bile duct is not seen. CT scan - abdomen: Attestation: I have reviewed the pertinent imaging results. Radiologist's impression: Lower chest: Unremarkable. Liver: Unremarkable. Normal in size and attenuation. No suspicious masses. Gallbladder and bile ducts: Unremarkable. No stones or inflammation. No biliary ductal dilatation. Spleen: Unremarkable. Normal in size. No masses. Adrenal glands: Unremarkable. No nodules. Pancreas: Unremarkable. No mass or inflammation. Kidneys: Left renal cysts. Subcentimeter hypodense foci are too small to accurately characterize. No hydronephrosis. GI tract: Duodenal diverticulum. Colonic diverticulosis without evidence of diverticulitis. No evidence of obstruction. Normal appendix. Lymph nodes: No lymphadenopathy. Vasculature: Scattered atherosclerotic calcifications. Abdominal aorta is normal in caliber. Omentum/Peritoneum/Abdominal Wall: Small fat containing umbilical and right inguinal hernias. No free air or significant free fluid. Pelvis: Urinary bladder diverticulum. Bones: Degenerative changes. Chronic bilateral L5 pars defect with grade 1 anterolisthesis L5 on S1. IMPRESSION: 1. No acute abdominal or pelvic abnormality. 2. Incidental findings as above.
--- NOTE | 2025-05-17 14:45 | PM.GSCN ---
History of Present Illness Consult details Date Seen: 05/17/25 Consult date: 05/18/25 Narrative: The patient is a 70-year-old male who presented to the emergency department today with severe right upper quadrant pain. He underwent a colonoscopy yesterday in [place], where a 3 mm rectal polyp was found and removed. He was noted to have diverticulosis, and nonbleeding internal hemorrhoids. The colonoscopy was otherwise unremarkable but the note states that the procedure was difficult secondary to a redundant colon. On my exam, Yves is somewhat confused and having difficulty relating the history. This is new from his prior exams but may be related to recently being given morphine. Most of his history is obtained from his Tamie but is corroborated by Yves. Tamie states that after the colonoscopy was doing fine. They went and had [employer]. He had a breakfast sandwich and some coffee. Around 5:00 p.m. he had sausage and waffles. Around 8:00 p.m. who developed severe chest pain. This was located behind his breast bone, and across his mid chest. Around 10:00 p.m. it became worse and his states that he was miserable so they brought him to the emergency department. There his workup was essentially normal except form elevated liver tests including bilirubin, direct bilirubin and AST and ALT. A CT scan was normal. It did not show inflammation or free air. While he was there the pain subsided and so he was given the choice of admission for observation or discharge home with follow-up with his surgeon. He elected to discharge home. The patient states he felt better, however his Tamie states that she does not think that he was doing well enough to go home. He woke up around 6:00 a.m. and was pacing. When Tamie got up to 7 she states that he stated he was not feeling well and after discharge they have been told to give him a clear liquid diet so she was planning to go buy Pedialyte however before she could leave he said that he needed to go back to the emergency department. There, he was noted to have an elevated white blood cell count, and elevated lactate at 2.2 and worsening liver function tests. He has had ongoing nausea and vomiting. He has vomited mainly bile. He has no cardiac history. He did have the shortness of breath with his 1st presentation to the ER. He states that he had 3 times when he felt as though he could not take a breath because the pain was so severe. This has not recurred however. The pain is not worse with movement. He has never had any symptoms like this previously. He has no history of liver disease that she knows of. His states he drinks alcohol only socially. He has not had surgeries on his abdomen but does have a history of an inguinal hernia repair. He and his previously lived in the [facility] and recently moved to [place] within the last year. He does not take blood thinners. [facility] Medical History Overactive bladder ?N32.81 - Overactive bladder (ICD-10) NANDA on CPAP ?G47.33 - Obstructive sleep apnea (adult) (pediatric) (ICD-10) Hyperlipidemia ?E78.5 - Hyperlipidemia, unspecified (ICD-10) Obesity ?E66.9 - Obesity, unspecified (ICD-10) Surgical History H/O inguinal hernia repair ?Z98.890 - Other specified postprocedural states (ICD-10) ?Z87.19 - Personal history of other diseases of the digestive system (ICD-10) History of total bilateral knee replacement ?Z96.653 - Presence of artificial knee joint, bilateral (ICD-10) Social History What is your current living situation?: I presently have a place to live Problems where you live: no known problems In the past 12 months, utilities in danger of being shut off: no In past 12 months, lack of transportation kept you from medical appts, meetings, work, or getting things needed for daily living: no In the past 12 mos, have been you worried that your food would run out before you had money to buy more?: never true In the past 12 mos, the food you bought just didn't last and you didn't have money to buy more?: never true Smoking Status: Never smoker Do you use any of these nicotine containing products: None Second hand tobacco smoke exposure: No How often do you have a drink containing alcohol: monthly or less How often do you have six or more drinks on one occasion: Never AUDIT-C Alcohol total score: 1 Non-prescribed substance use: denies use How often does anyone, including family, friends and others, physically hurt you: never How often does anyone, including family, friends and others, insult or talk down to you: never How often does anyone, including family, friends and others, threaten you with harm: never How often does anyone, including family, friends and others, scream or curse at you: never service: No Meds Home Medications and Allergies Home Medications ?Medication ?Instructions ?Recorded ?Confirmed ?Type atorvastatin 40 mg tablet 40 mg PO DAILY 05/17/25 05/17/25 History lutein 10 mg tablet 10 mg PO DAILY 05/17/25 05/17/25 History xoxginie-vmzmmutc-hzgkv acid 400 1 tab PO DAILY 05/17/25 05/17/25 History mcg-vit K 20 mcg-lycop 300 mcg tablet (One-A-Day Men's Multivitamin) omega3 550 qo-wxc-xab-D3 250 1.5 cap PO DAILY 05/17/25 05/17/25 History unit-lutein 2.5 mg-zeaxant 0.5 mg capsule (Eye [place] Advantage) timolol maleate 0.5 % eye drops 1 drp ophthalmic (eye) QAM 05/17/25 05/17/25 History tolterodine 4 mg capsule,extended 4 mg PO DAILY 05/17/25 05/17/25 History release 24 hr zeaxanthin 10 mg capsule 2 mg PO DAILY 05/17/25 05/17/25 History (Eyepromise Zeaxanthin) Allergies Allergy/AdvReac Type Severity Reaction Status Date / Time No Known Drug Allergies Allergy Verified 05/17/25 08:48 Exam Narrative: Exam Narrative: General appearance: Alert, cooperative, and in no distress Eyes: PERRLA, eye lids clear, and sclera white HENT Head: Normocephalic Ears: External ears normal Pulmonary: Breathing nonlabored on room air Cardiovascular Heart: Regular rate Extremities: warm and well perfused Gastrointestinal Abdominal: Distended. Upper abdomen is firm. No guarding or rebound. Lower abdomen is softer. Musculoskeletal: Extremities: Upper: Both upper extremities have normal joint range of motion and intact strength. Lower: Both lower extremities have normal joint range of motion and intact strength. Skin: Normal skin color, texture, and turgor. Neurologic: No focal deficits Psychiatric: Alert, oriented, cooperative, normal affect. Const: Vital Signs, click to edit/add: Vital Signs - 24 hr 05/17/25 08:50 05/17/25 10:37 05/17/25 10:52 Temperature 98.2 F Pulse Rate 66 63 Pulse Rate [Pulse Oximeter] 75 Respiratory Rate 18 16 24 Blood Pressure Blood Pressure [Ri ght Upper Arm] 147/93 H Pulse Oximetry 92 95 93 Oxygen Delivery Me thod Room Air 05/17/25 10:53 05/17/25 10:54 05/17/25 11:00 Temperature Pulse Rate 63 64 64 Pulse Rate [Pulse Oximeter] Respiratory Rate 13 13 11 L Blood Pressure 151/89 H Blood Pressure [Ri ght Upper Arm] Pulse Oximetry 93 96 95 Oxygen Delivery Me thod 05/17/25 11:15 05/17/25 12:24 05/17/25 12:30 Temperature Pulse Rate 64 66 70 Pulse Rate [Pulse Oximeter] Respiratory Rate 32 H Blood Pressure Blood Pressure [Ri ght Upper Arm] Pulse Oximetry 93 93 94 Oxygen Delivery Me thod 05/17/25 12:45 05/17/25 13:00 05/17/25 13:10 Temperature Pulse Rate 67 64 69 Pulse Rate [Pulse Oximeter] Respiratory Rate 16 Blood Pressure 150/103 H Blood Pressure [Ri ght Upper Arm] Pulse Oximetry 89 93 93 Oxygen Delivery Me thod 05/17/25 13:15 Temperature Pulse Rate 68 Pulse Rate [Pulse Oximeter] Respiratory Rate Blood Pressure Blood Pressure [Ri ght Upper Arm] Pulse Oximetry 89 Oxygen Delivery Me thod Results Labs Labs: White blood cell count this morning is 11 from 9.4 yesterday Electrolytes within normal limits Glucose is elevated at 210 Lactate this morning was 2.2 which is elevated from 1.5 overnight Total bilirubin 3.9 from 1.8 at 1:00 a.m. Direct bilirubin 2.0 from 0.8 AST 660 from 143 ALT 517 from 89 Alkaline phosphatase 165 from 145 Troponin 0.2 from less than 0.1 CRP today is 0.6 Pro BNP 120 Lipase is 68, 84 at 1:[address] scan report/results: report reviewed and image reviewed Abdominal ultrasound report/results: report reviewed and image reviewed Additional studies: CT abdomen and pelvis 05/17/2025: INDICATION: Upper abdominal pain. TECHNIQUE: CT abdomen and pelvis acquired with 98 cc Isovue 370 IV contrast. COMPARISON: None. FINDINGS: Lower chest: Unremarkable. Liver: Unremarkable. Normal in size and attenuation. No suspicious masses. Gallbladder and bile ducts: Unremarkable. No stones or inflammation. No biliary ductal dilatation. Spleen: Unremarkable. Normal in size. No masses. Adrenal glands: Unremarkable. No nodules. Pancreas: Unremarkable. No mass or inflammation. Kidneys: Left renal cysts. Subcentimeter hypodense foci are too small to accurately characterize. No hydronephrosis. GI tract: Duodenal diverticulum. Colonic diverticulosis without evidence of diverticulitis. No evidence of obstruction. Normal appendix. Lymph nodes: No lymphadenopathy. Vasculature: Scattered atherosclerotic calcifications. Abdominal aorta is normal in caliber. Omentum/Peritoneum/Abdominal Wall: Small fat containing umbilical and right inguinal hernias. No free air or significant free fluid. Pelvis: Urinary bladder diverticulum. Bones: Degenerative changes. Chronic bilateral L5 pars defect with grade 1 anterolisthesis L5 on S1. IMPRESSION: 1. No acute abdominal or pelvic abnormality. 2. Incidental findings as above. Dictated by Alan Guy MD @ 05/17/2025 2:24:06 AM Chest x-ray 05/17/25: INDICATION: Cough. COMPARISON: Comparison is made to a same day abdominopelvic CT which includes a portion of the lower chest. TECHNIQUE: Portable sitting AP view of the chest. FINDINGS: Slightly rotated rightward. Medical Devices: None. Lung Volumes: Adequate inspiration. No significant atelectasis. Lungs: Upper lobe pulmonary venous diversion suggest pulmonary venous congestion. No evidence of pulmonary edema. Pleura and Pleural spaces: No significant pleural effusion. No pneumothorax. Mediastinum: Normal cardiomediastinal silhouette. Bony Thorax and Soft Tissues: No significant incidental findings. IMPRESSION: Upper lobe pulmonary venous diversion suggest pulmonary venous congestion. No evidence of pulmonary edema. Recommend clinical correlation as to the possibility of volume overload/congestive heart failure. No other findings to explain the clinical history of a cough. Dictated by Mingo Tian MD @ 05/17/2025 10:06:44 AM US abdomen 05/17/25: INDICATION: Abdominal pain with nausea/vomiting and abnormal liver function tests. (Sic) COMPARISON: None available. TECHNIQUE: Right upper quadrant grayscale and limited color Doppler ultrasound. FINDINGS: Interpretation is limited by patient body habitus. Liver: Diffuse homogeneous increased hepatic parenchymal echotexture consistent with steatosis. Differential diagnostic considerations include chronic hepatitis and cirrhosis. No nayeli surface nodularity to suggest cirrhosis. No suspicious focal lesion. No intrahepatic biliary ductal dilatation. Normal hepatopedal portal venous blood flow. Normal peak systolic velocity of the portal vein on spectral Doppler at 26 cm/second. Gallbladder: Nondistended. Probable gallbladder sludge within the dependent gallbladder neck. No evidence of cholelithiasis. Normal wall thickness. Negative sonographic Telles sign. CBD: Not seen. Pancreas: Normal where visualized. The pancreas is partially obscured and therefore incompletely evaluated. Right Kidney: Normal echotexture. No hydronephrosis. No convincing sonographic evidence of nephrolithiasis. Midline Vasculature: Unremarkable where visualized. Peritoneal Cavity: No significant ascites. Additional Findings: None. IMPRESSION: 1. Diffusely echogenic hepatic parenchyma echotexture. This finding is most commonly due to hepatic steatosis. Differential diagnostic considerations as above. 2. Probable gallbladder sludge. No evidence of cholelithiasis. No other sonographic findings to indicate acute cholecystitis. 3. Otherwise limited study due to patient body habitus. The extrahepatic bile duct is not seen. Dictated by Mingo Tian MD @ 05/17/2025 11:12:51 AM MRCP 05/17/25: INDICATION: Right upper quadrant pain TECHNIQUE: 1.5 T MRI of the abdomen was performed with T2 weighted imaging; in and out of phase imaging; 3D MRCP imaging was obtained. No intravenous contrast was administered COMPARISON: Same day abdominal ultrasound and CT abdomen pelvis FINDINGS: Lungs: The lung bases are clear. No pleural or pericardial effusion. Edematous and mildly thickened mucosa of the distal esophagus Liver: Hepatic steatosis. Biliary tree and gallbladder: No intra or extrahepatic biliary dilation. Common bile duct measures up to 5 mm and tapers normally toward the ampulla. Fluid-filled gallbladder without stones. Gallbladder wall measures 3 mm. Spleen: Unremarkable Pancreas: Mildly atrophic pancreatic parenchyma. No pancreatic duct dilation. Adrenal glands: Unremarkable. Kidneys and ureters: No definite renal masses or hydronephrosis. Bilateral renal cysts and subcentimeter cystic lesions measuring up to 5.2 cm on the left GI tract: No evidence of obstruction or inflammation. Vasculature: The IVC and aorta are normal in caliber. Retroaortic left renal vein. Lymph nodes: No lymphadenopathy. Abdominal wall: Unremarkable Bones: Degenerative change of the imaged spine. IMPRESSION: 1. Hepatic steatosis 2. Edematous and mildly thickened mucosa of the distal esophagus, findings can be seen in the setting of esophagitis 3. Mildly distended gallbladder with prominent but not overtly thickened gallbladder wall. No intra or extrahepatic biliary dilation. No evidence of choledocholithiasis. Dictated by Anisa Encinas MD @ 05/17/2025 1:44:49 PM Progress Note:A&P Assessment and plan (1) NANDA on CPAP: Status: Acute (2) Transaminitis: Status: Acute (3) LFT elevation: Status: Acute (4) Hyperbilirubinemia: Status: Acute (5) RUQ pain: Status: Acute Plan The patient is a 70-year-old male with right upper quadrant pain and markedly elevated bilirubin and transaminases without choledocholithiasis though he does have some sludge seen on ultrasound and possible gallbladder thickening on MRCP which may indicate acute cholecystitis. Other causes include intrinsic liver disease or heart failure. He does not have an elevated BNP and no history of liver disease in reviewing outside records. -the temporal nature of the pain and his colonoscopy does make me somewhat concerned for perforation. I think this would be unusual with a normal CT scan at 1:00 a.m. when he was having severe symptoms. Currently does not have peritonitis. The most likely culprit seems to be his gallbladder given LFT elevation in the location of his pain. However I recommend a repeat upper right x-ray to rule out free air tonight since a recheck of his lactate was up to 2.8. Colonic ischemia can occur after colonoscopy as well as post polypectomy syndrome, however his symptoms seem more severe than what I would expect for post polypectomy syndrome and his pain location is not where I would expect colonic ischemia to present. Furthermore again his CT at 1:00 a.m. was normal. -agree with additional fluid resuscitation. He may have some degree of dehydration after colonoscopy prep -I discussed cholecystectomy with the patient his as well as risks, benefits and recovery from surgery. -we are planning for an echocardiogram tomorrow. If this is normal then we can proceed with cholecystectomy. -will follow-up abdominal x-ray and if no free air then we will manage him expectantly. If for some reason his symptoms were to worsen significantly overnight then I would recommend a repeat CT scan. -recheck labs in the morning
--- NOTE | 2025-05-17 16:16 | CRLHL7_ITS ---
For Patients: As a result of the Century Cures Act, medical imaging exams and procedure reports are released immediately into your electronic medical record. You may view this report before your referring provider. If you have questions, please contact your health care provider. INDICATION: Distention TECHNIQUE: Abdomen Pelvis radiograph 2 views on 5 films COMPARISON: None FINDINGS: The sensitivity and specificity of the exam are severely limited by the patient`s body habitus. Bowel: Moderate gaseous distention of the transverse colon and small bowel loops are noted measuring up to 3.2 cm. Soft tissue: No evidence of pneumoperitoneum present. No suspicious calcifications noted. Bone: Unremarkable for age. IMPRESSION: 1. Moderate gaseous distention of the transverse colon and small bowel loops are noted measuring up to 3.[address] may be helpful to exclude small bowel obstruction or ileus. Dictated by Cooper Davis MD @ 05/17/2025 5:55:34 PM Dictated by: Cooper Davis MD @ 05/17/2025 17:55:38 (Electronically Signed)
[2025-05-17] MEDS: SODIUM CHLORIDE 0.9 % (FLUSH) 10 ML SYRINGE 5 ML IVF (16:36)
[2025-05-17 16:49] LABS: Lactate* 2.8 mmol/L (0.5-1.9)
[2025-05-17 19:43] LABS: Lactate* 2.4 mmol/L (0.5-1.9)
--- NOTE | 2025-05-17 19:47 | PC.NURSE ---
End of Shift Note 259 Patient arrived from ED with abdominal pain. Cholecystitis noted. Surgery programmed for AM. Patient moves SBA to toilet. VSS. Some anxiety noted upon arrival, but patient seems comfortable now. ECHO ordered. SCDs in place.
[2025-05-17 22:25] LABS: Lactate* 1.9 mmol/L (0.5-1.9)
[2025-05-17] MEDS: ACETAMINOPHEN 325 MG TABLET 650 MG PO (23:40)
[2025-05-18] VITALS (27 sets, daily range): BP systolic 93–140; BP diastolic 55–89; PULSE 67–82; RESP 16–24; TEMP 36.1–38.2; O2SAT 90–95
[2025-05-18] MEDS: IBUPROFEN 400 MG TABLET PO (01:50)
[2025-05-18] MEDS: PIPERACILLIN/TAZOBACTAM 3.375 GM in 0.9 % SODIUM CHLORIDE Mini-bag 100 ML IVPB ×4 (03:09→22:07)
[2025-05-18 06:52] LABS: Hematocrit* 36.6 % (37.0-53.0); Hemoglobin* 12.4 gm/dL (13.5-17.5); Mean Corpuscular HGB Conc 34 gm/dL (32-36); Mean Corpuscular Hemoglobin 34 pg (26-34); Mean Corpuscular Volume 99 fL (80-100); Red Blood Count* 3.70 m/uL (4.30-5.90); Slide Review Reflex No; White Blood Count* 17.48 K/uL (4.50-11.00)
[2025-05-18 06:54] LABS: Albumin* 3.6 g/dL (3.3-5.0); Chloride* 107 mmol/L (96-114); Sodium* 138 mmol/L (135-149)
[2025-05-18 06:55] LABS: Potassium* 3.4 mmol/L (3.6-5.1)
[2025-05-18 06:57] LABS: Alanine Aminotransferase* 390 U/L (4-50); Alkaline Phosphatase* 126 U/L (40-150); Anion Gap 7 mEq/L (7-15); Aspartate Amino Transferase* 280 U/L (12-35); Bilirubin Total* 5.5 mg/dL (0.1-1.5); Blood Urea Nitrogen* 11 mg/dL (7-30); Carbon Dioxide* 24 mmol/L (20-32); Creatinine* 0.9 mg/dL (0.5-1.5); Est. Creatinine Clearance* 65.55; Estimated Glomerular Filt Rate 91 ml/min
[2025-05-18 06:58] LABS: Calcium* 8.4 mg/dL (8.4-10.6); Glucose* 124 mg/dL (60-115); Total Protein* 6.6 g/dL (6.0-8.3)
[2025-05-18 07:12] LABS: INR 1.25 (0.91-1.10); Prothrombin Time 16.6 Seconds
--- NOTE | 2025-05-18 07:30 | PC.NURSE ---
End of Shift: Pt pleasant, alert and oriented. VSS, though pt febrile with 2300 vs. Tylenol given, temp went to 100.8, blanco notified, Motrin given, temp 99.0. Pt has some episodes of forgetfulness/repetitive questions, easily redirected. NPO. ?Pt showered, tolerated well. Pt in bed, appears to be resting, call light within reach.
[2025-05-18] MEDS: timoloL maleate 0.5 % 1 DROP EYE-BOTH (08:24)
[2025-05-18] MEDS: SODIUM CHLORIDE 0.9 % (FLUSH) 10 ML SYRINGE 5 ML IVF ×2 (08:24→22:07)
--- NOTE | 2025-05-18 09:01 | PM.GSPN ---
Subjective Subjective Date Seen: 05/18/25 Interval history: Yves feels much better today. He is alert and oriented. He remembers our visit yesterday and that he did have difficulty giving his history. He states that his upper abdomen is still sore but much better overall. He is not passing any gas. He has not had a bowel movement. Exam Narrative: Exam Narrative: General: No acute distress CV: Regular rate Respiratory: Breathing nonlabored on room air Abdomen: Upper abdomen is firm and tender. Mid/lower abdomen is mildly distended but soft. Const: Vital Signs, click to edit/add: Vital Signs - 24 hr 05/17/25 10:37 05/17/25 10:52 05/17/25 10:53 Temperature Pulse Rate 66 63 63 Pulse Rate [Left P ulse Oximeter] Respiratory Rate 16 24 13 Blood Pressure 151/89 H Blood Pressure [Le ft Arm] Blood Pressure [Ri ght Arm] Pulse Oximetry 95 93 [facility] 10:54 05/17/25 11:00 05/17/25 11:15 Temperature Pulse Rate 64 64 64 Pulse Rate [Left P ulse Oximeter] Respiratory Rate 13 11 L 32 H Blood Pressure Blood Pressure [Le ft Arm] Blood Pressure [Ri ght Arm] Pulse Oximetry 96 95 93 [facility] 05/17/25 12:24 05/17/25 12:30 05/17/25 12:45 Temperature Pulse Rate 66 70 67 Pulse Rate [Left P ulse Oximeter] Respiratory Rate Blood Pressure Blood Pressure [Le ft Arm] Blood Pressure [Ri ght Arm] Pulse Oximetry 93 94 89 [facility] 05/17/25 13:00 05/17/25 13:10 05/17/25 13:15 Temperature Pulse Rate 64 69 68 Pulse Rate [Left P ulse Oximeter] Respiratory Rate 16 Blood Pressure 150/103 H Blood Pressure [Le ft Arm] Blood Pressure [Ri ght Arm] Pulse Oximetry 93 93 89 [facility] 05/17/25 14:44 05/17/25 14:56 05/17/25 15:00 Temperature Pulse Rate Pulse Rate [Left P ulse Oximeter] 79 Respiratory Rate 22 Blood Pressure Blood Pressure [Le ft Arm] Blood Pressure [Ri ght Arm] 147/96 H Pulse Oximetry 93 93 93 [facility] Room Air 05/17/25 15:00 05/17/25 21:10 05/17/25 22:29 Temperature 99.3 F Pulse Rate Pulse Rate [Left P ulse Oximeter] 79 110 H 83 Respiratory Rate 20 16 16 Blood Pressure Blood Pressure [Le ft Arm] 118/74 132/76 Blood Pressure [Ri ght Arm] Pulse Oximetry 90 92 Oxygen Delivery Me thod Room Air Room Air 05/17/25 23:00 05/17/25 23:00 05/17/25 23:31 Temperature 99.7 F H Pulse Rate Pulse Rate [Left P ulse Oximeter] 83 Respiratory Rate 16 Blood Pressure Blood Pressure [Le ft Arm] Blood Pressure [Ri ght Arm] Pulse Oximetry 92 Oxygen Delivery Me thod 05/18/25 00:48 05/18/25 03:00 05/18/25 03:09 Temperature 100.8 F H 99.0 F 99.0 F Pulse Rate Pulse Rate [Left P ulse Oximeter] 72 Respiratory Rate 16 Blood Pressure Blood Pressure [Le ft Arm] 121/70 Blood Pressure [Ri ght Arm] Pulse Oximetry 92 Oxygen Delivery Me thod Room Air 05/18/25 07:35 05/18/25 07:35 05/18/25 08:33 Temperature 98.9 F 98.4 F Pulse Rate Pulse Rate [Left P ulse Oximeter] 79 Respiratory Rate 18 Blood Pressure Blood Pressure [Le ft Arm] 127/74 Blood Pressure [Ri ght Arm] Pulse Oximetry 94 94 Oxygen Delivery Me thod Room Air Labs/Imaging Labs Labs: White blood cell count is 17 from 11 Potassium 3.4 Remainder of electrolytes are normal Lactate trended down to normal last evening Total bilirubin 5.5 AST 280 ALT 390 Alkaline phosphatase 126 CRP 5.4 Imaging Imaging: Abdominal x-ray from yesterday: IMPRESSION: 1. Moderate gaseous distention of the transverse colon and small bowel loops are noted measuring up to 3.[address] may be helpful to exclude small bowel obstruction or ileus. Dictated by Cooper Davis MD @ 05/17/2025 5:55:34 PM Progress Note:A&P Assessment and plan (1) NANDA on CPAP: Status: Acute (2) Acute cholecystitis: Status: Acute (3) Hyperbilirubinemia: Status: Acute (4) Acute upper abdominal pain: Status: Acute Plan The patient is a 70-year-old male with acute cholecystitis. We will plan on cholecystectomy today. Of note there was some concern about whether not an echocardiogram was required preoperatively. I spoke with the hospitalist to feels that the patient may proceed to surgery safely. The patient states that he has good exercise tolerance and has not had any cardiac symptoms previously. Risks and benefits were discussed with the patient and his . He will likely need to stay overnight given that I expect he will have fairly significant inflammation given his laboratory values. He signed informed consent and is agreeable to proceed.
[2025-05-18] MEDS: LACTATED RINGERS 500 ML 500 ML 125 ML IV (09:40)
--- NOTE | 2025-05-18 10:43 | PM.GSPRC ---
Operative Note Date of procedure: 05/18/25 Pre-op diagnosis: Acute cholecystitis Post-op diagnosis: Same Type of Procedure: Laparoscopic cholecystectomy Indications: The patient is a 70-year-old male who presented to the emergency department with chest and upper abdominal pain. Workup revealed elevated LFTs and white count. MRCP showed mild gallbladder thickening and no evidence of choledocholithiasis. I recommended cholecystectomy and he agreed to proceed. Procedure Description: After discussing the risks and benefits of the procedure, the patient signed informed consent.? The operative site was marked and the patient was brought to the operating room and placed on the operating table in supine position.? Care was taken to pad the patient's pressure points.?? The patient was then intubated by anesthesia.?? The operative site was then prepped and draped in the usual sterile fashion.? A time-out was then performed. Entrance to the abdomen was gained via Lux technique by making an incision below the umbilicus. The patient had an umbilical hernia containing preperitoneal fat. This was extended and through this a 10 mm port was placed. The abdomen was then insufflated. A 5 mm port was placed in the left upper quadrant along with 2 5 mm ports along the right costal margin. This was done under direct vision. The patient's colon was noted to be dilated. I gently was able to retract this caudad and identify the gallbladder. The patient was placed in reverse Trendelenburg position with right side up. The transverse colon pericolonic fat was adherent to the falciform ligament, preventing visualization. I took these adhesions down sharply using a scissor. I was then able to push the transverse colon and intra-abdominal fat caudad toward the pelvis. The gallbladder was noted to have patchy areas of necrosis. It was edematous and tensely distended. This was decompressed. Dark bile was aspirated. Once the gallbladder was decompressed I was able to grasp this at the fundus and retract it cephalad. The infundibulum was grasped. A combination of hook cautery and blunt dissection was used to carefully dissect out the cystic duct and artery until they could clearly be seen entering the gallbladder without any intervening structures. The gallbladder was dissected off the cystic plate to achieve the critical view. The tissue was friable and bled easily given the edematous nature, however this was accomplished without significant difficulty. Once the critical view was achieved, the cystic duct and artery were each clipped with 2 clips proximally and 1 clip distally and transected with the scissors. The gallbladder was then taken off of the liver bed and removed from the abdomen using an Endo-Catch bag. The gallbladder bed was surveyed for hemostasis which appeared adequate. A small amount of bile which had spilled was suctioned from the abdomen. The ports were removed and the abdomen was desufflated. The umbilical port fascia was closed with 0 Vicryl. The skin was closed with absorbable subcuticular suture. Sterile dressings were applied. Instrument sponge and needle counts were correct at the end of the case. The patient was then woken and transferred to the PACU in stable condition. The patient tolerated the procedure well. Findings: Acute, gangrenous cholecystitis. Anesthesia: GETA Surgeon: Sammi Wilkinson MD Estimated blood loss (mL): 10 Specimen: Gallbladder Condition: stable Disposition: PACU
--- NOTE | 2025-05-18 10:47 | P.ANES_ITS ---
Anesthesia Charges Start Date/Time Anesthesia Start Date: 05/18/25 Anesthesia Start Time: 09:21 Stop Date/Time Anesthesia Stop Date: 05/18/25 Anesthesia Stop Time: 11:10 Summary Extremes of Age - Over 70 or under 1: MDA Coding CPT Codes CPT Codes: ANESTH SURG UPPER ABDOMEN - 36041 ([id number]) P2 - PATIENT W/MILD SYST DISEASE, QK - SOCIAL SERVICE WORKER 2-4 CNCRNT ANES PROC, QX - BUSINESS INTELLIGENCE MANAGER SVC W/ MD MED DIRECTION Additional Codes: Summary - Extremes of Age - Over 70 or under 1: MDA ([id number])
--- NOTE | 2025-05-18 10:47 | W.ANESCHARGE ---
Anesthesia Charges Start Date/Time Anesthesia Start Date: 05/18/25 Anesthesia Start Time: 09:21 Stop Date/Time Anesthesia Stop Date: 05/18/25 Anesthesia Stop Time: 11:10 Summary Extremes of Age - Over 70 or under 1: MDA Coding CPT Codes CPT Codes: ANESTH SURG UPPER ABDOMEN - 10139 ([id number]) P2 - PATIENT W/MILD SYST DISEASE, QK - BROKERAGE PURCHASE AND SALE CLERK 2-4 CNCRNT ANES PROC, QX - MARKETING DATA SPECIALIST SVC W/ MD MED DIRECTION Additional Codes: Summary - Extremes of Age - Over 70 or under 1: MDA ([id number])
--- NOTE | 2025-05-18 10:54 | P.ANES_ITS ---
Anesthesia Charges Start Date/Time Anesthesia Start Date: 05/18/25 Anesthesia Start Time: 09:21 Stop Date/Time Anesthesia Stop Date: 05/18/25 Anesthesia Stop Time: 11:10 Summary Extremes of Age - Over 70 or under 1: NETWORK SPECIALIST Coding CPT Codes CPT Codes: ANESTH SURG UPPER ABDOMEN - 26881 ([id number]) P2 - PATIENT W/MILD SYST DISEASE, QK - GROUT MACHINE TENDER 2-4 CNCRNT ANES PROC, QX - NETWORK SPECIALIST SVC W/ MD MED DIRECTION Additional Codes: Summary - Extremes of Age - Over 70 or under 1: NETWORK SPECIALIST ([id number])
--- NOTE | 2025-05-18 10:54 | W.ANESCHARGE ---
Anesthesia Charges Start Date/Time Anesthesia Start Date: 05/18/25 Anesthesia Start Time: 09:21 Stop Date/Time Anesthesia Stop Date: 05/18/25 Anesthesia Stop Time: 11:10 Summary Extremes of Age - Over 70 or under 1: UNLOADER OPERATOR Coding CPT Codes CPT Codes: ANESTH SURG UPPER ABDOMEN - 92682 ([id number]) P2 - PATIENT W/MILD SYST DISEASE, QK - CLERICAL PROOFREADER 2-4 CNCRNT ANES PROC, QX - UNLOADER OPERATOR SVC W/ MD MED DIRECTION Additional Codes: Summary - Extremes of Age - Over 70 or under 1: UNLOADER OPERATOR ([id number])
[2025-05-18] MEDS: LACTATED RINGERS 1000 ML 1,000 ML 125 ML IV (12:07)
--- NOTE | 2025-05-18 14:24 | PC.NURSE ---
? End of shift [id number]: Pt AxOx3, cooperative, and pleasant with cares. Pt underwent surgery @ 0948 and arrived back to the unit @ 1150. SBA to the bathroom with IV pole. LR running @ 125 ml/hr. Tolerating advanced diet well. Drinking fluids. Active ice to the abdomen. Lap sites remain CDI with dried scant blood. Patient denies pain and nausea. SCDs in place. Bed alarm in place. Call light within reach. ?
--- NOTE | 2025-05-18 20:07 | CRLHL7_ITS ---
For Patients: As a result of the Century Cures Act, medical imaging exams and procedure reports are released immediately into your electronic medical record. You may view this report before your referring provider. If you have questions, please contact your health care provider. INDICATION: Chest pain, dyspnea. TECHNIQUE: CT chest PE was acquired with 100 cc Omnipaque 350 IV contrast. MIP reconstructions were performed. COMPARISON: None. FINDINGS: Heart and vasculature: Contrast opacification of the pulmonary arterial tree is adequate. No sign of pulmonary embolism. Heart size is normal. Mild ascending aortic ectasia measuring 4.3 centimeters. Lungs and pleura: Right greater than left basilar atelectasis. No pleural effusions, pleural thickening, or pneumothorax. Lymph nodes/mediastinum: No mediastinal, hilar, or axillary adenopathy. Chest wall: No masses. Upper abdomen: Postsurgical changes of cholecystectomy with small volume free intraperitoneal air, not unexpected in the setting of recent surgery. Bones: Unremarkable for age. IMPRESSION: No pulmonary embolism as questioned. Bgaqb-[id number]-[id number]-left basilar atelectasis. Otherwise, no focal consolidations. Postsurgical changes of cholecystectomy with small volume free intraperitoneal air, not unexpected in the setting of recent surgery. Please note that all CT scans at this facility use dose modulation, iterative reconstruction, and/or weight-based dosing when appropriate to reduce radiation dose to as low as reasonably achievable. Dictated by Eduardo Singleton MD @ 05/18/2025 10:27:23 PM (Electronically Signed)
[2025-05-18] MEDS: HYDROCODONE-ACETAMIN 5-325 MG 1 TAB PO (22:09)
--- NOTE | 2025-05-18 23:40 | PC.NURSE ---
end of shift: Pt. is AOx4. VSS. Complained of pain in R chest and shoulder and SOB. Updated MD: MD in to see patient. Orders updated to include EKG, labs, and CT scan. Up and AMB in the halls SBA. Pain med given at HS. Tolerating regular diet w/ no N/V.
[2025-05-18] MEDS: MELATONIN 3 MG TABLET PO (23:51)
[2025-05-19] VITALS (7 sets, daily range): BP systolic 113–132; BP diastolic 69–85; PULSE 70–77; RESP 16–18; TEMP 36.7–37.7; O2SAT 92–93
[2025-05-19] MEDS: PIPERACILLIN/TAZOBACTAM 3.375 GM in 0.9 % SODIUM CHLORIDE Mini-bag 100 ML IVPB ×4 (03:34→20:55)
--- NOTE | 2025-05-19 05:25 | PC.NURSE ---
End of Shift ([id number]): Pt pleasant, alert and oriented. VSS.?Afebrile. Denies pain throughout shift. SBA. Pt in bed, appears to be resting, call light within reach.?
[2025-05-19 06:38] LABS: Hematocrit* 35.7 % (37.0-53.0); Hemoglobin* 11.7 gm/dL (13.5-17.5); Mean Corpuscular HGB Conc 33 gm/dL (32-36); Mean Corpuscular Hemoglobin 33 pg (26-34); Mean Corpuscular Volume 101 fL (80-100); Red Blood Count* 3.55 m/uL (4.30-5.90); White Blood Count* 14.29 K/uL (4.50-11.00)
[2025-05-19 06:47] LABS: Slide Review Reflex No
[2025-05-19 07:01] LABS: Albumin* 3.1 g/dL (3.3-5.0)
[2025-05-19 07:04] LABS: Alanine Aminotransferase* 240 U/L (4-50); Alkaline Phosphatase* 96 U/L (40-150); Aspartate Amino Transferase* 115 U/L (12-35); Bilirubin Direct* 1.0 mg/dL (0.0-0.5); Bilirubin Total* 2.2 mg/dL (0.1-1.5); Total Protein* 6.0 g/dL (6.0-8.3)
[2025-05-19] MEDS: timoloL maleate 0.5 % 1 DROP EYE-BOTH (08:58)
[2025-05-19] MEDS: TOLTERODINE TARTRATE 2 MG CAP.ER.24H 4 MG PO (08:58)
[2025-05-19] MEDS: SODIUM CHLORIDE 0.9 % (FLUSH) 10 ML SYRINGE 5 ML IVF ×2 (08:58→20:57)
[2025-05-19 09:42] LABS: Bilirubin Direct* 2.9 mg/dL (0.0-0.5)
--- NOTE | 2025-05-19 10:07 | P.GSPN_ITS ---
Subjective Subjective Date Seen: 05/19/25 Interval history: Patient is doing well after his laparoscopic cholecystectomy. His pain is improving. He has better appetite and was eating breakfast during our visit. Patient only ambulated once yesterday and still feels weak. The shoulder pain that bothers him yesterday is now resolved. Exam Narrative: Exam Narrative: Abdomen is soft, not distended, somewhat tender to palpation in the right upper quadrant, laparoscopic incisions are covered with dry Steri-Strips. Const: Vital Signs, click to edit/add: Vital Signs - 24 hr 05/18/25 11:05 05/18/25 11:10 05/18/25 11:15 Temperature 96.9 F L Pulse Rate 72 67 68 Pulse Rate [Left P ulse Oximeter] Respiratory Rate 16 22 20 Blood Pressure 97/61 93/55 L 97/56 L Blood Pressure [Le ft Arm] Pulse Oximetry 90 93 93 Oxygen Delivery Me thod OxyMask Oxygen Flow Rate 8 05/18/25 11:20 05/18/25 11:25 05/18/25 11:30 Temperature Pulse Rate 67 72 72 Pulse Rate [Left P ulse Oximeter] Respiratory Rate 24 23 24 Blood Pressure 98/62 101/62 105/60 Blood Pressure [Le ft Arm] Pulse Oximetry 95 92 92 Oxygen Delivery Me thod Room Air Oxygen Flow Rate 6 05/18/25 11:35 05/18/25 11:50 05/18/25 12:05 Temperature 97.2 F L 98.1 F 97.8 F Pulse Rate 74 71 69 Pulse Rate [Left P ulse Oximeter] Respiratory Rate 22 16 18 Blood Pressure 99/65 118/73 126/74 Blood Pressure [Le ft Arm] Pulse Oximetry 93 90 92 Oxygen Delivery Me thod Room Air Room Air Oxygen Flow Rate 05/18/25 12:20 05/18/25 12:35 05/18/25 12:50 Temperature 97.5 F L 98.1 F 98.2 F Pulse Rate 76 74 74 Pulse Rate [Left P ulse Oximeter] Respiratory Rate 18 20 18 Blood Pressure 127/85 140/89 H 132/85 Blood Pressure [Le ft Arm] Pulse Oximetry 90 91 93 Oxygen Delivery Me thod Room Air Room Air Room Air Oxygen Flow Rate 05/18/25 13:20 05/18/25 13:50 05/18/25 15:19 Temperature 98.4 F 98.1 F 99.5 F Pulse Rate 69 77 Pulse Rate [Left P ulse Oximeter] 74 Respiratory Rate 18 20 18 Blood Pressure 117/78 119/85 Blood Pressure [Le ft Arm] 114/83 Pulse Oximetry 90 92 95 Oxygen Delivery Me thod Room Air Room Air Room Air Oxygen Flow Rate 05/18/25 15:19 05/18/25 15:19 05/18/25 15:59 Temperature 99.1 F Pulse Rate Pulse Rate [Left P ulse Oximeter] 74 72 Respiratory Rate 18 18 Blood Pressure Blood Pressure [Le ft Arm] 111/69 Pulse Oximetry 95 92 Oxygen Delivery Me thod Room Air Oxygen Flow Rate 05/18/25 17:00 05/18/25 18:00 05/18/25 18:36 Temperature 99.1 F 99.8 F H Pulse Rate Pulse Rate [Left P ulse Oximeter] 82 81 79 Respiratory Rate 20 18 20 Blood Pressure Blood Pressure [Le ft Arm] 109/60 111/71 114/75 Pulse Oximetry 91 92 91 Oxygen Delivery Me thod Room Air Room Air Room Air Oxygen Flow Rate 05/18/25 19:00 05/18/25 23:00 05/18/25 23:00 Temperature 99.8 F H Pulse Rate Pulse Rate [Left P ulse Oximeter] 79 74 Respiratory Rate 20 16 Blood Pressure Blood Pressure [Le ft Arm] 114/75 Pulse Oximetry 91 90 Oxygen Delivery Me thod Room Air Oxygen Flow Rate 6 05/18/25 23:55 05/19/25 03:37 05/19/25 07:00 Temperature 98.7 F 98.2 F 99.5 F Pulse Rate Pulse Rate [Left P ulse Oximeter] 74 75 77 Respiratory Rate 16 18 16 Blood Pressure Blood Pressure [Le ft Arm] 108/62 113/69 125/79 Pulse Oximetry 90 92 93 Oxygen Delivery Me thod Room Air Room Air Room Air Oxygen Flow Rate 05/19/25 07:00 05/19/25 07:30 Temperature Pulse Rate Pulse Rate [Left P ulse Oximeter] 77 Respiratory Rate 16 Blood Pressure Blood Pressure [Le ft Arm] Pulse Oximetry 93 Oxygen Delivery Me thod Oxygen Flow Rate Progress Note:A&P Assessment and plan (1) S/P laparoscopic cholecystectomy: Status: Acute Plan 70-year-old male s/p laparoscopic cholecystectomy POD 1. Overall patient is doing well. His total bilirubin was decreasing. His direct bilirubin today is 1 and direct bilirubin was not checked yesterday. His t ransaminases are improving. Patient is tolerating regular diet. Patient has not ambulated much and will work on this today. I recommended to keep this patient in the hospital 1 more day to make sure his direct bilirubin continues to improve and his mobility improves. If his direct bilirubin continues to be elevated or is increasing, patient may need ERCP. We will continue IV antibiotics for now and at discharge will send him home on p.o. antibiotics.
--- NOTE | 2025-05-19 16:36 | PM.IMPN1 ---
Assessment and Plan Assessment and plan (1) S/P laparoscopic cholecystectomy: Problem comment: 05/18/2025 Status: Acute (2) Acute cholecystitis: Problem comment: - imaging today shows concern for acute cholecystitis without evidence of choledocholithiasis on MRCP - transaminitis, hyperbilirubinemia - ED provider discussed with General surgery, Dr. Wilkinson, recommending admission with IV antibiotics, NPO, IVF, pain and nausea management. Plan for OR likely in the next 24-48 hours - continue Zosyn, morphine, Zofran - SCDs for VTE PPX Status: Acute (3) NANDA on CPAP: Problem comment: -CPAP -perioperative pulmonary hygiene Status: Acute (4) Overactive bladder: Problem comment: -on tolterodine Status: Acute (5) Hyperbilirubinemia: Problem comment: - 05/19/2025: total bili 2.2, direct bili 1.0; yesterday total bilirubin was 5.5 with direct bilirubin of 2.9 - follow daily and consider possible need for ERCP Status: Acute (6) Transaminitis: Problem comment: - follow daily Status: Acute Plan 1. Reviewed impression, plans, recommendations with patient 2. Discussed with his surgeon, Dr. Garcia 3. Advance diet to clear liquids as tolerated 4. Increase activities 5. Patient agreeable with above stated plans and recommendations Total Time Spent Total Time Spent: 30 minutes Subjective Date Seen: 05/19/25 Interval history: Admission history of present illness: ?70 year old male past medical history significant for obesity, hyperlipidemia, overactive bladder is admitted to the medical floor from the ED for further management acute cholecystitis. ?Patient is seen with at bedside. Onset abdominal pain and cramping, nausea without vomiting approximately 8:00 p.m. last night. Eventually vomiting overnight. No change in stools other than related to colonoscopy prep earlier this week. No documented fevers though felt feverish overnight. Denies headache. Has occasional lightheadedness. Denies chest pain or shortness of breath. Denies sore throat or difficulty swallowing. ?Imaging in ED concerning for acute cholecystitis without evidence of choledocholithiasis on MRCP. Significantly elevated LFTs, bilirubin. ED provider discussed with General surgery, admit with plan for surgical intervention 1-2 days. ?PCP is Dr. Forbes. Recently moved from [place]. Never a smoker. 2-3 drinks weekly. No previous anesthesia complications. Last was with colonoscopy this week with intubation- likely cause for findings of edema and thickened mucosa of the distal esophagus. No personal/family history bleeding disorders. ?Echocardiogram ordered for findings of pulmonary vascular congestion on CXR. BNP unremarkable. Asymptomatic. Walks 2-3 miles 3-4 times weekly and rides an Ebike the other days.? 05/19/2025, postop day 2 and hospital day 3. Much improved from yesterday. Tolerating increased activities. Passing flatus but no stool. Tolerating clear liquids. Denies nausea or vomiting. Abdominal discomfort much less problematic. Exam Narrative: Exam Narrative: Examined patient his hospital room and as he is ambulating the halls. Appears relatively comfortable no acute distress. Independent with transfers, station, gait. Lungs clear to auscultation. Heart tones with regular rhythm. Abdomen with active bowel sounds, soft. Extremities with trace edema pretibially bilaterally. Const: Vital Signs, click to edit/add: Vital Signs - 24 hr 05/18/25 17:00 05/18/25 18:00 05/18/25 18:36 Temperature 99.1 F 99.8 F H Pulse Rate [Left P ulse Oximeter] 82 81 79 Respiratory Rate 20 18 20 Blood Pressure [Le ft Arm] 109/60 111/71 114/75 Pulse Oximetry 91 92 91 [facility] Room Air Oxygen Flow Rate 05/18/25 19:00 05/18/25 23:00 05/18/25 23:00 Temperature 99.8 F H Pulse Rate [Left P ulse Oximeter] 79 74 Respiratory Rate 20 16 Blood Pressure [Le ft Arm] 114/75 Pulse Oximetry 91 90 [facility] Flow Rate 6 05/18/25 23:55 05/19/25 03:37 05/19/25 07:00 Temperature 98.7 F 98.2 F 99.5 F Pulse Rate [Left P ulse Oximeter] 74 75 77 Respiratory Rate 16 18 16 Blood Pressure [Le ft Arm] 108/62 113/69 125/79 Pulse Oximetry 90 92 93 [facility] Air Room Air Oxygen Flow Rate 05/19/25 07:00 05/19/25 07:30 05/19/25 11:00 Temperature 98.9 F Pulse Rate [Left P ulse Oximeter] 77 73 Respiratory Rate 16 18 Blood Pressure [Le ft Arm] 118/85 Pulse Oximetry 93 92 Oxygen Delivery Me thod Room Air Oxygen Flow Rate 05/19/25 15:00 05/19/25 15:00 Temperature 98.1 F Pulse Rate [Left P ulse Oximeter] 70 Respiratory Rate 18 Blood Pressure [Le ft Arm] 119/77 Pulse Oximetry 93 93 Oxygen Delivery Me thod Room Air Oxygen Flow Rate Labs Labs: Laboratory Results - last 24 hr 05/18/25 05/18/25 05/19/25 06:15 17:50 06:18 WBC 14.29 H RBC 3.55 L Hgb 11.7 L Hct 35.7 L MCV 101 H MCH 33 MCHC 33 Plt Count 155 Total Bilirubin 2.2 H Direct Bilirubin 2.9 H 1.0 H AST 115 H ALT 240 H Alkaline Phosphatase 96 Troponin I < 0.01 Total Protein 6.0 Albumin 3.1 L Lab Acknowledgement 05/19/25 09:19 WBC RBC Hgb Hct MCV MCH MCHC Plt Count Total Bilirubin Direct Bilirubin AST ALT Alkaline Phosphatase Troponin I Total Protein Albumin Lab Acknowledgement Test Added
--- NOTE | 2025-05-19 16:45 | P.IMPN_ITS ---
Assessment and Plan Assessment and plan (1) Acute cholecystitis: Problem comment: - imaging today shows concern for acute cholecystitis without evidence of choledocholithiasis on MRCP - transaminitis, hyperbilirubinemia - ED provider discussed with General surgery, Dr. Wilkinson, recommending admission with IV antibiotics, NPO, IVF, pain and nausea management. Plan for OR likely in the next 24-48 hours - continue Zosyn, morphine, Zofran - SCDs for VTE PPX Status: Acute (2) RUQ pain: Problem comment: -will go to OR 05/18/2025 -will cancel echocardiogram. Not indicated. Status: Acute (3) NANDA on CPAP: Problem comment: -CPAP -perioperative pulmonary hygiene Status: Acute (4) Obesity: Status: Acute Plan 1. Reviewed impression, plans, recommendations with patient 2. Discussed with Dr. Wilkinson, general surgeon 3. Answered patient's questions to satisfaction 4. He is agreeable to the above stated plans and recommendations Total Time Spent Total Time Spent: 40 minutes Subjective Date Seen: 05/18/25 Interval history: Admission history of present illness: ?70 year old male past medical history significant for obesity, hyperlipidemia, overactive bladder is admitted to the medical floor from the ED for further management acute cholecystitis. ?Patient is seen with at bedside. Onset abdominal pain and cramping, nausea without vomiting approximately 8:00 p.m. last night. Eventually vomiting overnight. No change in stools other than related to colonoscopy prep earlier this week. No documented fevers though felt feverish overnight. Denies headache. Has occasional lightheadedness. Denies chest pain or shortness of breath. Denies sore throat or difficulty swallowing. ?Imaging in ED concerning for acute cholecystitis without evidence of choledocholithiasis on MRCP. Significantly elevated LFTs, bilirubin. ED provider discussed with General surgery, admit with plan for surgical intervention 1-2 days. ?PCP is Dr. Forbes. Recently moved from [place]. Never a smoker. 2-3 drinks weekly. No previous anesthesia complications. Last was with colonoscopy this week with intubation- likely cause for findings of edema and thickened mucosa of the distal esophagus. No personal/family history bleeding disorders. ?Echocardiogram ordered for findings of pulmonary vascular congestion on CXR. BNP unremarkable. Asymptomatic. Walks 2-3 miles 3-4 times weekly and rides an Ebike the other days.? 05/18/2025: Hospital day 2. I assess the patient preoperatively. Continues to have abdominal discomfort. Nausea improved. Exam 2 Narrative: Exam Narrative: I assess the patient his hospital room. When I see him after receiving analgesia he appears comfortable. Abdomen with occasional bowel sounds, mild discomfort with palpation. No guarding. Lungs clear Heart tones regular Independent with transfer, station, gait Const: Vital Signs, click to edit/add: Vital Signs - 24 hr 05/18/25 17:00 05/18/25 18:00 05/18/25 18:36 Temperature 99.1 F 99.8 F H Pulse Rate [Left P ulse Oximeter] 82 81 79 Respiratory Rate 20 18 20 Blood Pressure [Le ft Arm] 109/60 111/71 114/75 Pulse Oximetry 91 92 91 Oxygen Delivery Me thod Room Air Room Air Room Air Oxygen Flow Rate 05/18/25 19:00 05/18/25 23:00 05/18/25 23:00 Temperature 99.8 F H Pulse Rate [Left P ulse Oximeter] 79 74 Respiratory Rate 20 16 Blood Pressure [Le ft Arm] 114/75 Pulse Oximetry 91 90 Oxygen Delivery Me thod Room Air Oxygen Flow Rate 6 05/18/25 23:55 05/19/25 03:37 05/19/25 07:00 Temperature 98.7 F 98.2 F 99.5 F Pulse Rate [Left P ulse Oximeter] 74 75 77 Respiratory Rate 16 18 16 Blood Pressure [Le ft Arm] 108/62 113/69 125/79 Pulse Oximetry 90 92 93 Oxygen Delivery Me thod Room Air Room Air Room Air Oxygen Flow Rate 05/19/25 07:00 05/19/25 07:30 05/19/25 11:00 Temperature 98.9 F Pulse Rate [Left P ulse Oximeter] 77 73 Respiratory Rate 16 18 Blood Pressure [Le ft Arm] 118/85 Pulse Oximetry 93 92 Oxygen Delivery Me thod Room Air Oxygen Flow Rate 05/19/25 15:00 05/19/25 15:00 Temperature 98.1 F Pulse Rate [Left P ulse Oximeter] 70 Respiratory Rate 18 Blood Pressure [Le ft Arm] 119/77 Pulse Oximetry 93 93 Oxygen Delivery Me thod Room Air Oxygen Flow Rate Labs Labs: Laboratory Results - last 24 hr 05/18/25 05/18/25 05/19/25 06:15 17:50 06:18 WBC 14.29 H RBC 3.55 L Hgb 11.7 L Hct 35.7 L MCV 101 H MCH 33 MCHC 33 Plt Count 155 Total Bilirubin 2.2 H Direct Bilirubin 2.9 H 1.0 H AST 115 H ALT 240 H Alkaline Phosphatase 96 Troponin I < 0.01 Total Protein 6.0 Albumin 3.1 L Lab Acknowledgement 05/19/25 09:19 WBC RBC Hgb Hct MCV MCH MCHC Plt Count Total Bilirubin Direct Bilirubin AST ALT Alkaline Phosphatase Troponin I Total Protein Albumin Lab Acknowledgement Test Added
--- NOTE | 2025-05-19 18:35 | PC.NURSE ---
End of Shift: Patient pleasant and cooperative, A&O. VSS, afebrile. Dressing C/D/I to abdomen with slight bloody drainage. Independent. Tolerating regular diet. ?
[2025-05-19] MEDS: MELATONIN 3 MG TABLET PO (20:57)
[2025-05-20] MEDS: HYDROCODONE-ACETAMIN 5-325 MG 1 TAB PO (02:04)
[2025-05-20] MEDS: PIPERACILLIN/TAZOBACTAM 3.375 GM in 0.9 % SODIUM CHLORIDE Mini-bag 100 ML IVPB ×2 (03:10→08:28)
[2025-05-20 03:16] VITALS: BP 115/69; PULSE 65; RESP 16; TEMP 37.2; O2SAT 99
[2025-05-20 06:12] LABS: Hematocrit* 36.6 % (37.0-53.0); Hemoglobin* 12.2 gm/dL (13.5-17.5); Mean Corpuscular HGB Conc 33 gm/dL (32-36); Mean Corpuscular Hemoglobin 33 pg (26-34); Mean Corpuscular Volume 99 fL (80-100); Red Blood Count* 3.70 m/uL (4.30-5.90); White Blood Count* 11.01 K/uL (4.50-11.00)
[2025-05-20 06:30] LABS: Slide Review Reflex No
[2025-05-20 06:33] LABS: Albumin* 3.4 g/dL (3.3-5.0); Chloride* 106 mmol/L (96-114); Potassium* 3.4 mmol/L (3.6-5.1); Sodium* 138 mmol/L (135-149)
--- NOTE | 2025-05-20 06:33 | PC.NURSE ---
pt alert and oriented. VSS. 4 lap sites are c/d/i. IV in R AC and hand. Reported pain, managed with PRN Hydrocodone. Pt is 1 assist.
[2025-05-20 06:36] LABS: Alanine Aminotransferase* 183 U/L (4-50); Anion Gap 7 mEq/L (7-15); Aspartate Amino Transferase* 63 U/L (12-35); Blood Urea Nitrogen* 15 mg/dL (7-30); Calcium* 8.7 mg/dL (8.4-10.6); Carbon Dioxide* 25 mmol/L (20-32); Creatinine* 0.9 mg/dL (0.5-1.5); Est. Creatinine Clearance* 65.55; Estimated Glomerular Filt Rate 91 ml/min; Glucose* 115 mg/dL (60-115); Total Protein* 6.8 g/dL (6.0-8.3)
[2025-05-20 06:37] LABS: Alkaline Phosphatase* 98 U/L (40-150); Bilirubin Direct* 0.6 mg/dL (0.0-0.5); Bilirubin Total* 1.7 mg/dL (0.1-1.5)
[2025-05-20 07:00] VITALS: O2SAT 92
[2025-05-20] MEDS: timoloL maleate 0.5 % 1 DROP EYE-BOTH (08:27)
[2025-05-20] MEDS: SODIUM CHLORIDE 0.9 % (FLUSH) 10 ML SYRINGE 5 ML IVF (08:28)
[2025-05-20] MEDS: TOLTERODINE TARTRATE 2 MG CAP.ER.24H 4 MG PO (08:28)
[2025-05-20 08:30] VITALS: BP 120/80; PULSE 73; RESP 18; TEMP 36.9; O2SAT 92
--- NOTE | 2025-05-20 09:45 | P.DS_ITS ---
DS: Providers Provider Date Seen: 05/20/25 Date of admission: 05/17/25 15:33 Primary care physician: Iam Forbes MD Admitting Clinician: Sandee Darling MD Consults: 05/17/25 14:44 Consult to Physician [CONS] Urgent Comment: Consulting Provider: Sammi Wilkinson Has provider been notified: Yes Attending Physician on discharge: Sandee Darling MD DS: Diagnosis Discharge Diagnosis (1) S/P laparoscopic cholecystectomy: Status: Acute Problem details: 05/18/2025 DS: Summary Hospital Course Hospital Course: 70-year-old male was admitted to the hospital with acute cholecystitis. Patient underwent laparoscopic cholecystectomy. His liver function tests were elevated and during his hospital stay those were improving. Patient was treated with IV antibiotics due to degree of inflammation. Patient was discharged on p.o. anti biotics. Time Spent with Patient Time attestation: Total time spent providing and/or coordinating discharge services: Exam Narrative: Exam Narrative: Abdomen is soft, not distended, mildly tender to palpation in the right upper quadrant, no peritoneal signs. Laparoscopic incisions are covered with dry dressings. Const: Vital Signs, click to edit/add: Vital Signs - 24 hr 05/19/25 11:00 05/19/25 15:00 05/19/25 15:00 Temperature 98.9 F 98.1 F Pulse Rate [Left P ulse Oximeter] 73 70 Respiratory Rate 18 18 Blood Pressure [Le ft Arm] 118/85 119/77 Pulse Oximetry 92 93 93 Oxygen Delivery Me thod Room Air Room Air 05/19/25 15:00 05/19/25 19:48 05/19/25 23:00 Temperature 100 F H 99.6 F Pulse Rate [Left P ulse Oximeter] 70 77 71 Respiratory Rate 18 18 17 Blood Pressure [Le ft Arm] 132/81 130/81 Pulse Oximetry 93 93 Oxygen Delivery Me thod Room Air Room Air 05/19/25 23:00 05/20/25 03:16 05/20/25 07:00 Temperature 99 F Pulse Rate [Left P ulse Oximeter] 65 Respiratory Rate 16 Blood Pressure [Le ft Arm] 115/69 Pulse Oximetry 93 99 92 Oxygen Delivery Me thod Room Air 05/20/25 08:30 05/20/25 08:30 Temperature 98.5 F Pulse Rate [Left P ulse Oximeter] 73 73 Respiratory Rate 18 18 Blood Pressure [Le ft Arm] 120/80 Pulse Oximetry 92 Oxygen Delivery Me thod Room Air DS: Data Data Completed and Pending Labs on day of discharge: Labs from last 24 hours 05/20/25 05/18/25 05:45 06:15 WBC 11.01 H RBC 3.70 L Hgb 12.2 L Hct 36.6 L MCV 99 MCH 33 MCHC 33 Plt Count 191 Sodium 138 Potassium 3.4 L Chloride 106 Carbon Dioxide 25 Anion Gap 7 BUN 15 Creatinine 0.9 Estimated Creat Clear 65.55 Estimated GFR 91 Glucose 115 Calcium 8.7 Total Bilirubin 1.7 H Direct Bilirubin 0.6 H 2.9 H AST 63 H ALT 183 H Alkaline Phosphatase 98 Total Protein 6.8 Albumin 3.4 Discharge Plan Discharge Disposition: Home, Self-Care Date of Admission: 05/17/25 15:33 Attending Provider on Discharge: Ramona Garcia Consulting Providers: Sammi Wilkinson Primary Care Provider: Iam Forbes Condition: Stable Anticipated Discharge Date/Time: 05/20/25 09:44 Discharge Medications: New hydrocodone-acetaminophen 5-325 mg tablet 1 tab PO Q6H PRN (Reason: pain) Qty: 14 0RF amoxicillin-pot clavulanate 875-125 mg tablet 1 tab PO BID Qty: 10 0RF Continued atorvastatin 40 mg tablet 40 mg PO DAILY tolterodine 4 mg capsule,extended release 24hr 4 mg PO DAILY timolol maleate 0.5 % drops 1 drp ophthalmic (eye) QAM lutein 10 mg tablet 10 mg PO DAILY Rx Instructions: give with meal/snack Eyepromise Zeaxanthin 10 mg capsule 2 mg PO DAILY One-A-Day Men's Multivitamin 400-20-300 mcg tablet 1 tab PO DAILY Eye [place] Advantage 550-250-2.5-0.5 kf-qrir-cj-mg capsule 1.5 cap PO DAILY Discharge Orders: Discharge Order (Routine); Ordered 05/20/25 Ordered By: Ramona Garcia Patient Education: Hydrocodone/Acetaminophen (By mouth), Amoxicillin/Clavulanate Potassium (By mouth), General Anesthesia (DC), NH+C Post-Operative Instructions: Laparoscopic Cholecystectomy Additional Instructions: Wound care: Your sutures are under the skin and will dissolve over time. Leave steri strips (white bandages) over incisions until they fall off (or remove after 7 days). OK to shower tomorrow but avoid bathing, soaking or swimming for 2 weeks. Pat the incisions dry. No need to wash or scrub the area. Apply ice to the area as needed for swelling. It is also OK to use a heating pad if this provides more comfort to you. Pain control: You were prescribed a pain medication. This medication contains acetaminophen (Tylenol). If you are taking your prescribed pain pills 4 times daily, do not take additional acetaminophen. As your pain improves, you can try taking acetaminophen instead of the prescribed pain pill. It is ok to take Ibuprofen or Naproxen (per directions on packaging). This medication helps with inflammation and swelling. Take an [id number] stool softener while you are taking prescribed pain medications to help alleviate constipation. I recommend Senna and/or Colace. Take as directed on package. If you have not had a bowel movement in 3 days, try taking Miralax as directed on the package. All of these are available over the counter. Follow-up Follow up with Dr. Wilkinson in 2-3 weeks Please call if you are experiencing severe pain, nausea, vomiting, difficulty urinating, fever or have not had bowel movement in 4 days after surgery. Activity Level: Activity as Tolerated and No strenuous activity Activity Detail: No lifting more than 20 pounds for 2 weeks. Discharge Diet: Regular Follow Up Appointments: Iam Forbes MD [Primary Care Provider, Family Practice] Sammi Wilkinson MD [Staff Physician, General Surgery] - 05/30/25 11:30 am Forms: [facility] Bel[facility]ings, [facility] Info Instructions
--- NOTE | 2025-05-20 11:14 | PC.NURSE ---
Discharge: Patient pleasant and cooperative, A&O. VSS, afebrile. SpO2 maintained above 90% on RA. Patient reports pain in his abdomen this shift, declined PRN medication. Independent in room. IV's removed with tip intact. Discharge instructions provided, all questions answered. D/C to home with .
== END 2025-05-20 10:50 | disposition home or self-care (01) | DRG 419 ==
LOC: ED 14:03 → MEDSURG 14:29
PROVIDERS: Family Medicine; Internal Medicine; Physician Assistant; Surgery; Admitting Provider Family Medicine; Emergency Provider Family Medicine; PCP Student in an Organized Health Care Education/Training Program; Visit Provider Family Medicine
PROC: 0FT44ZZ Resection of Gallbladder, Percutaneous Endoscopic Approach (ICD-10-PCS; CPT 47562; principal; 2025-05-18 09:15)
DX: K81.0 Acute cholecystitis (principal); K82.A1 Gangrene of gallbladder in cholecystitis; K76.0 Fatty (change of) liver, not elsewhere classified; G47.33 Obstructive sleep apnea (adult) (pediatric); R09.89 Other specified symptoms and signs involving the circulatory and respiratory systems; E66.9 Obesity, unspecified; Z68.34 Body mass index [BMI] 34.0-34.9, adult; N32.81 Overactive bladder; R74.01 Elevation of levels of liver transaminase levels; E80.6 Other disorders of bilirubin metabolism; E78.5 Hyperlipidemia, unspecified; R10.10 Upper abdominal pain, unspecified; R94.5 Abnormal results of liver function studies
CPT/HCPCS: 00790; 36415; 71045; 71275; 74019; 74177; 74181; 76705; 80048; 80053; 80076; 82248; 83605; 83690; 83735; 83880; 84484; 85025; 85027; 85610; 85730; 86140; 87631; 88304; 93005; 94761; 96374; 99100; 99284; 99285; A9270; J0330; J1100; J2270; J2371; J2405; J2543; J2704; J3010; J3490; J7030; J7120; Q9967